=== PATIENT | male | born 1960 | race Caucasian/White ===

== ENCOUNTER 2017-03-03 08:38 | Day surgery (SDC) | payer MEDICAID, OTHER ==
[2017-03-03] MEDS ORDERED: FAMOTIDINE 20 MG TAB PO ONE (08:41)
[2017-03-03] MEDS ORDERED: DIAZEPAM 5 MG TAB PO ONE (08:41)
[2017-03-03] MEDS ORDERED: ASPIRIN EC 325 MG TAB PO ONE ×2 (08:41→08:58)
[2017-03-03] MEDS ORDERED: diphenhydrAMINE 25 MG CAP PO ONE ×2 (08:41→08:58)
[2017-03-03] MEDS ORDERED: NS 1,000 ML IV ONE (08:41)
[2017-03-03] MEDS ORDERED: FAMOTIDINE 20 MG TAB ONE (08:58)
[2017-03-03] MEDS ORDERED: DIAZEPAM 5 MG TAB ONE (08:59)
--- NOTE | 2017-03-03 09:00 | CPEKG ---
Heart Rate: 82 RR Interval: 732 P-R Interval: 152 QRSD Interval: 94 QT Interval: 404 QTC Interval: 472 P [place]: 47 QRS [place]: 26 T Wave [place]: 57 EKG Severity - NORMAL ECG - EKG Impression: SINUS RHYTHM Electronically Signed By: Josefina Laws 03-Mar-2017 18:18:53
[2017-03-03 09:14] LABS: PLATELET COUNT 162 10^3/uL (150-400)
[2017-03-03] MEDS ORDERED: fentaNYL 100 MCG/2 ML INJ ONE ×2 (09:35→11:44)
[2017-03-03] MEDS ORDERED: LIDOCAINE 1% 300 MG/30 ML SDV ONE (09:35)
[2017-03-03] MEDS ORDERED: MIDAZOLAM 2 MG/2 ML VIAL ONE ×2 (09:35→11:44)
[2017-03-03] MEDS ORDERED: HEPARIN 10,000 UNIT/10 ML MDV (1,000 UNIT/ML) ONE (09:36)
[2017-03-03] MEDS ORDERED: IOPAMIDOL (ISOVUE-370) 150 ML BTL IV ONE (09:36)
[2017-03-03] MEDS ORDERED: VERAPAMIL 5 MG/2 ML VIAL ONE (09:36)
--- NOTE | 2017-03-03 09:36 | PDHPUP ---
History & Physical Update H&P update statement: This history and physical update is based on an assessment of the patient which was completed after admission or registration (within 24 hours), but prior to the surgery/procedure. H&P update: H&P reviewed & patient examined, no change in patient's condition since H&P completed
--- NOTE | 2017-03-03 09:37 | PDPROPOC ---
Sedation Plan of Care Sedation Plan of Care: vital signs stable, mental status noted, patient educated of risks, benefits, alternatives, patient can tolerate sedation ASA Classification: ASA 2 Planned drugs: fentanyl, midazolam Mallampati Score: Class 3 Mallampati Reference Image: Patient passed 3-3-2 rule?: Yes
[2017-03-03 09:42] LABS: INR 0.95 (0.83-1.16); PROTIME(PATIENT) 12.9 SEC (12.0-15.0)
[2017-03-03] MEDS ORDERED: NICOTINE 14 MG/24 HR PATCH TD SCH (10:00)
[2017-03-03] MEDS ORDERED: ATROPINE SULFATE 1 MG/10 ML SYR IVP PRN (12:38)
[2017-03-03] MEDS ORDERED: ONDANSETRON 4 MG/2 ML VIAL IVP PRN (12:38)
[2017-03-03] MEDS ORDERED: HYDROCODONE/APAP 5/325 TAB PO PRN (12:38)
[2017-03-03] MEDS ORDERED: NITROGLYCERIN 0.4 MG BTL SL PRN (12:38)
--- NOTE | 2017-03-03 12:46 | PDDXCAT ---
Diagnostic Cath Note - . 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 LAD: Proximal 50-60%; mid-LAD 80-90% involving origin of 2nd diagonal. LCX: Ectasia of the mid-circumflex without flow-limiting stenosis. RCA: Mid-RCA 100% with [id number] collaterals. LVEF: 60% Wall motion: Normal. Complications: None Estimated blood loss: <50ml Closure method: TR Band Assessment: 1) Normal LV systolic function. 2) Multi-vessel CAD as described above. Plan: Will refer to CT surgery for CABG.
--- NOTE | 2017-03-03 17:23 | GCON ---
[f rep st] CONSULTATION DATE OF CONSULTATION: 03/03/2017 PREOPERATIVE DIAGNOSES: 1. Class 3 angina pectoris with severe 2-vessel disease. 2. Morbid obesity. 3. Alcoholism. 4. Chronic obstructive pulmonary disease with chronic ongoing cigarette abuse. 5. obstructive sleep apnea. 6. Type 2 diabetes. 7. Hypertension. 8. Mild aortic stenosis with bicuspid aortic valve disease. RECOMMENDATIONS: This patient represents a complicated PCI and surgery was recommended, given his total occlusion of the right with collaterals from the left, and a large LAD with multiple sequential lesions compromising a diagonal branch. I advised him the options include medical therapy versus surgical therapy; that his best long-term outcomes are with surgery, but his early risk is higher with surgery versus PCI. He is amenable to surgical intervention. He agrees to discontinue alcohol consumption now, in anticipation of surgery in 6 or 7 days. He was advised that if he had recurrence of angina at rest or with less exertion, then he should come directly to the ER and we would intervene sooner. He also agrees to try to taper cigarette abuse. He does not wear oxygen, and has no history of COPD. CHIEF COMPLAINT: Exertional angina. HISTORY OF CHIEF COMPLAINT: This patient has noted worsening left arm and chest discomfort with exertion, and abnormal noninvasive testing and subsequent cath revealed lesions as stated. He has had no previous cardiac intervention or history. MEDICATIONS ON ADMISSION: Advair, Ambien, Aspir 81, citalopram, glyburide, ibuprofen, lisinopril, hydrochlorothiazide, lovastatin, metformin, metoprolol, and Pro HFA 90 mcg inhaler. SOCIAL HISTORY: He admits to at least a pint of alcohol a day. He smokes at least a pack cigarettes per day. His recently within the last year, which precipitated depression and recurrence of his chronic alcoholism, from which he had abstained for from multiple for multiple years. DIAGNOSTIC STUDIES: Echo in [place] revealed trace MR, trace TR. PAs inestimable from the exam, and a bicuspid aortic valve with a mean gradient of 13 with trace AI. EF was 55%. Treadmill revealed upsloping ST-segment depression with reversible changes involving anterior septal and inferior segments of the LV. PHYSICAL EXAMINATION: GENERAL: An obese middle-aged gentleman, sitting upright in bed, eating lunch, alert, cooperative, no apparent distress, accompanied by a good friend and involved libertarian. NECK: Without bruits. HEART : Rate is regular with a soft systolic murmur across precordium. ABDOMEN: Protuberant, unable to palpate organs. Bowel sounds are active. RECTAL AND GENITAL: Deferred. NEUROLOGIC: He is grossly intact. EXTREMITIES: He has no pedal edema. 2+ pedal pulses. We will check LFTs to rule out underlying cirrhosis, although I see no peripheral stigmata. /[id number]/MODL MTDD
[2017-03-04] MEDS ORDERED: ATORVASTATIN CALCIUM 40 MG TAB PO SCH (09:00)
== END 2017-03-03 15:47 | disposition home or self-care (01) ==
LOC: FCATH 08:38
PROVIDERS: ATTEND Internal Medicine Interventional Cardiology
PROC: 4A023N7 Measurement of Cardiac Sampling and Pressure, Left Heart, Percutaneous Approach (ICD-10-PCS; principal; 2017-03-03)
PROC: B2151ZZ Fluoroscopy of Left Heart using Low Osmolar Contrast (ICD-10-PCS; principal; 2017-03-03)
PROC: B2111ZZ Fluoroscopy of Multiple Coronary Arteries using Low Osmolar Contrast (ICD-10-PCS; principal; 2017-03-03)
DX: I25.119 Atherosclerotic heart disease of native coronary artery with unspecified angina pectoris (principal); I25.82 Chronic total occlusion of coronary artery; R94.39 Abnormal result of other cardiovascular function study; I35.0 Nonrheumatic aortic (valve) stenosis; I36.1 Nonrheumatic tricuspid (valve) insufficiency; F17.210 Nicotine dependence, cigarettes, uncomplicated; E11.9 Type 2 diabetes mellitus without complications; J44.9 Chronic obstructive pulmonary disease, unspecified; I10 Essential (primary) hypertension; E78.00 Pure hypercholesterolemia, unspecified; G47.33 Obstructive sleep apnea (adult) (pediatric); E66.01 Morbid (severe) obesity due to excess calories; Z68.34 Body mass index [BMI] 34.0-34.9, adult; F10.20 Alcohol dependence, uncomplicated; Z79.82 Long term (current) use of aspirin
CPT/HCPCS: 71045; 93005; 93458; 93880; C1769; J1644; J2250; J3010; Q9967

== ENCOUNTER 2017-03-09 08:08 | Inpatient (IN) | payer MEDICAID ==
[~2017-03-09 08:08] MED LIST: ADENOSINE 6 MG/2 ML VIAL ONE; ALBUMIN 5% 250 ML BOTTLE IV ONE; AMIODARONE HCL 150 MG/3 ML VIAL ONE; CALCIUM CHLORIDE 1 GM/10 ML INJ ONE; CITRATE DEXTROSE SOLN 500 ML BAG MISC ONE; CITRATE DEXTROSE SOLN 500 ML BAG ONE; DOPamine 400 MG in D5W 250 ML IV ONE; HEPARIN 10,000 UNIT/10 ML MDV (1,000 UNIT/ML) ONE; INSULIN REGULAR HUMAN 100 UNIT in NS 100 ML IV ONE; LIDOCAINE 2% 100 MG/5 ML SYR ONE; MAGNESIUM SULFATE 1 GM/2 ML VIAL ONE; MANNITOL 25% 12.5 GM/50 ML VIAL IVP ONE; MILRINONE/DEXTROSE/100 ML BAG IV ONE; MUPIROCIN 2% 22 GM OINT NS ONE; NA BICARBONATE 50 MEQ/50 ML VIAL ONE; NOREPINEPHRINE BITARTRATE 16 MG in NS 250 ML IV ONE; PHENYLEPHRINE HCL 50 MG in NS 250 ML IV ONE; PROTAMINE SULFATE 50 MG/5 ML VIAL IVP ONE; SODIUM BICARBONATE 20 MEQ, LIDOCAINE 1% 10 ML in NORMOSOL-R 1,000 ML MISC ONE; TRANEXAMIC ACID 1,000 MG in NS 100 ML IV ONE; VERAPAMIL 5 MG, NITROGLYCERIN 2.5 MG, HEPARIN 500 UNIT, SODIUM BICARBONATE 0.2 MEQ in L... MISC ONE; ceFAZolin 1 GM VIAL ONE; ceFAZolin 2 GM/SWFI 2 GM/20 ML SYR IVP ONE; methylPREDNISolone SOD SUCC 1 GM/8 ML VIAL ONE; niCARdipine/NACL 200 ML IV SCH; niCARdipine/NACL/200 ML BAG IV ONE
--- NOTE | 2017-03-09 08:18 | PDHPUP ---
History & Physical Update H&P update statement: This history and physical update is based on an assessment of the patient which was completed after admission or registration (within 24 hours), but prior to the surgery/procedure.
[2017-03-09] MEDS ORDERED: ceFAZolin 2 GM/SWFI 2 GM/20 ML SYR IVP ONE (09:15)
[2017-03-09] MEDS ORDERED: MUPIROCIN 2% 22 GM OINT NS ONE (09:15)
[2017-03-09] MEDS ORDERED: PAPAVERINE HCL 60 MG/2 ML SDV ONE (09:19)
[2017-03-09] MEDS ORDERED: VERAPAMIL 5 MG/2 ML VIAL ONE (09:20)
[2017-03-09] MEDS ORDERED: LR 1,000 ML IV ONE (09:22)
[2017-03-09] MEDS ORDERED: LIDOCAINE 1% 2 ML INJ ID PRN (09:22)
[2017-03-09] MEDS ORDERED: MIDAZOLAM 2 MG/2 ML VIAL ONE ×3 (09:47→10:05)
[2017-03-09] MEDS ORDERED: MIDAZOLAM 2 MG/2 ML VIAL IVP ONE (09:50)
--- NOTE | 2017-03-09 09:52 | PDANEPAE ---
ANE History of Present Illness cad s/f cabg ANE Past Medical History - Cardiovascular History Hx Hypertension: Yes Hx Arrhythmias: No Hx Chest Pain: Yes Hx Coronary Artery / Peripheral Vascular Disease: Yes Hx CHF / Valvular Disease: No Hx Palpitations: No Cardiovascular History Comment: heart murmur - Pulmonary History Hx COPD: Yes Hx Asthma/Reactive Airway Disease: Yes Hx Recent Upper Respiratory Infection: No Hx Oxygen in Use at Home: No Hx Sleep Apnea: Yes Sleep Apnea Screening Result - Last Documented: Positive Pulmonary History Comment: smoking since 4 yrs old, currently smokes 1,1/2 packs a day - Neurologic History Hx Cerebrovascular Accident: No Hx Seizures: No Hx Dementia: No - Endocrine History Hx Diabetes: Yes Endocrine History Comment: type 2 - Renal History Hx Renal Disorders: No - Liver History Hx Hepatic Disorders: No - Neurological & Psychiatric Hx Hx Neurological and Psychiatric Disorders: Yes Neurological / Psychiatric History Comment: anxiety and deppression. hx of suicidal ideation with attempt. 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 - Cancer History Hx Cancer: No - Congenital Disorder History Hx Congenital Disorders: No - GI History Hx Gastrointestinal Disorders: No - Other Health History Other Health History: two ruptured disc's in lower back - Chronic Pain History Chronic Pain: No - Surgical History Prior Surgeries: none ANE Review of Systems Review of Systems: - Exercise capacity METS (RN): 3 METS ANE Patient History - Allergies Allergies/Adverse Reactions: oxycodone [From Percodan] Allergy (Severe, Verified 03/06/17 14:07) Other-Enter Comments - Home Medications Home medications: home medication list seen and reviewed Home Medications: Albuterol [Proventil Inhaler HFA (*)] 2 puffs IH Q6HRS PRN 03/03/17 [Last Taken 03/08/17] Aspirin [Aspirin 81mg (*)] 81 mg PO DAILY 03/03/17 [Last Taken 03/08/17] Citalopram [CeleXA 20 MG] 20 mg PO DAILY 03/03/17 [Last Taken 03/08/17] Fluticasone/Salmeter 250/50Mcg [Advair 250/50 (*)] 1 puffs IH BID 03/03/17 [ Last Taken 03/08/17] Ibuprofen [Motrin (*)] 600 mg PO TID PRN 03/03/17 [Last Taken 03/07/17] Lisinopril/Hctz 20/12.5MG [Zestoretic/Prinzide 20/12.5MG (*)] 1 ea PO DAILY [Last Taken 03/08/17] Metoprolol Succinate Xr [Toprol Xl 100 mg (*)] 200 mg PO DAILY 03/03/17 [Last Taken 03/08/17] Zolpidem Tartrate [Ambien 5MG (*)] 5 mg PO HS PRN 03/03/17 [Last Taken 03/08/17] glyBURIDE [Glyburide] 5 mg PO BIDMEAL 03/03/17 [Last Taken 03/08/17] metFORMIN HCL [Glucophage 1000 mg] 1,000 mg PO BIDMEAL 03/03/17 [Last Taken ] - NPO status NPO Since - Liquids (Date): 03/08/17 NPO Since - Liquids (Time): 23:00 NPO Since - Solids (Date): 03/08/17 NPO Since - Solids (Time): 22:00 - Smoking Hx Smoking Status: Heavy smoker - Family Anes Hx Family Hx Anesthesia Complications: none ANE Labs/Vital Signs - Labs - CBC WBC: reviewed and ok - Vital Signs Heart Rate: 69 Respiratory Rate: 14 O2 Sat (%): 92 Height: 180.34 cm Weight: 111.13 kg ANE Physical Exam - Airway Neck exam: FROM Mallampati Score: Class 2 Mouth exam: michelle - Pulmonary Pulmonary: expiratory wheeze - Cardiovascular Cardiovascular: regular rate and rhythym - ASA Status ASA Status: III ANE Anesthesia Plan Anesthesia Plan: general endotracheal anesthesia Lines/Monitors: arterial line (by CTS), central line (QL CVP)
[2017-03-09] MEDS ORDERED: PROPOFOL/EMULSION 500 MG/50 ML BOTTLE IV ONE ×2 (10:06→13:12)
[2017-03-09] MEDS ORDERED: fentaNYL 250 MCG/5 ML INJ ONE (10:06)
[2017-03-09] MEDS ORDERED: REMIFENTANIL HCL 1 MG VIAL ONE (10:06)
[2017-03-09] MEDS ORDERED: PHENYLEPHRINE HCL 100 MCG/ML SYR ONE (10:10)
[2017-03-09] MEDS ORDERED: DEXAMETHASONE 4 MG/ML VIAL ONE ×2 (10:10)
[2017-03-09] MEDS ORDERED: LIDOCAINE 2% 100 MG/5 ML SYR ONE (10:10)
[2017-03-09] MEDS ORDERED: LIDOCAINE HCL 160 MG/4 ML LTA KIT TP ONE (10:10)
[2017-03-09] MEDS ORDERED: ROCURONIUM 100 MG/10 ML VIAL ONE (10:10)
[2017-03-09] MEDS ORDERED: ONDANSETRON 4 MG/2 ML VIAL ONE (10:10)
[2017-03-09] MEDS ORDERED: MINERAL OIL 10 ML VIAL ONE (13:08)
[2017-03-09] MEDS ORDERED: ceFAZolin 1 GM VIAL ONE ×2 (13:12)
[2017-03-09] MEDS ORDERED: PROTAMINE SULFATE 50 MG/5 ML VIAL IVP ONE ×2 (13:20→13:39)
[2017-03-09] MEDS ORDERED: DEXMEDETOMIDINE HCL 400 MCG in NS 100 ML IV SCH (13:30)
[2017-03-09] MEDS ORDERED: ALBUMIN 5% 250 ML BOTTLE IV ONE (13:30)
[2017-03-09] MEDS ORDERED: MAGNESIUM SULF 2 GM/WATER 50 ML BAG IV ONE (13:31)
[2017-03-09] MEDS ORDERED: ROCURONIUM 50 MG/5 ML VIAL ONE (13:36)
[2017-03-09] MEDS ORDERED: CALCIUM CHLORIDE 1 GM/10 ML INJ ONE ×2 (13:37→13:58)
[2017-03-09] MEDS ORDERED: DEXMEDETOMIDINE/NS 4MCG/ML 50 ML BTL IV ONE (14:19)
[2017-03-09] MEDS ORDERED: BISACODYL 10 MG SUPP PR PRN (14:29)
[2017-03-09] MEDS ORDERED: ACETAMINOPHEN 325 MG TAB PO PRN (14:29)
[2017-03-09] MEDS ORDERED: MAGNESIUM SULF 2 GM/WATER 50 ML IV ONE (14:29)
[2017-03-09] MEDS ORDERED: POTASSIUM Cl (KCl) 50 ML IV PRN (14:29)
[2017-03-09] MEDS ORDERED: CEPACOL LOZENGE PO PRN (14:29)
[2017-03-09] MEDS ORDERED: SODIUM CL NASAL 45 ML BTL EACHNARE PRN (14:29)
[2017-03-09] MEDS ORDERED: POLYETHYLENE GLYCOL 3350 17 GM PKT PO PRN (14:29)
[2017-03-09] MEDS ORDERED: ONDANSETRON 4 MG/2 ML VIAL IVP PRN (14:29)
[2017-03-09] MEDS ORDERED: LACTULOSE 20 GM/30 ML UDCUP PO PRN (14:29)
[2017-03-09] MEDS ORDERED: ACETAMINOPHEN 650 MG SUPP PR PRN (14:29)
[2017-03-09] MEDS ORDERED: METOCLOPRAMIDE 10 MG/2 ML VIAL IVP PRN (14:29)
[2017-03-09] MEDS ORDERED: ONDANSETRON DISINTEGRATING 4 MG TAB PO PRN (14:29)
[2017-03-09] MEDS ORDERED: PANTOPRAZOLE SODIUM 40 MG VIAL IVP ONE (14:29)
[2017-03-09] MEDS ORDERED: MAGNESIUM HYDROXIDE 30 ML UDCUP PO PRN (14:29)
[2017-03-09] MEDS ORDERED: D50W 25 GM/50 ML SYR IVP PRN (14:29)
[2017-03-09] MEDS ORDERED: MEPERIDINE 25 MG/ML SYR IVP PRN (14:29)
[2017-03-09] MEDS ORDERED: DEXMEDETOMIDINE IN 0.9 % NACL 100 ML IV SCH (14:30)
[2017-03-09] MEDS ORDERED: INSULIN REGULAR HUMAN 100 UNIT in NS 100 ML IV SCH (14:30)
[2017-03-09] MEDS ORDERED: IPRATROPIUM/ALBUTEROL 3 ML DEYVIAL IH PRN (14:36)
[2017-03-09] MEDS ORDERED: HYDROmorphONE/DILAUDID 1 MG/ML INJ IVP PRN (14:36)
[2017-03-09] MEDS ORDERED: VODKA 50 ML BOTTLE PO PRN (14:39)
[2017-03-09] MEDS ORDERED: PROMETHAZINE HCL 25 MG SUPPR PR PRN (14:47)
[2017-03-09] MEDS: IPRATROPIUM/ALBUTEROL 4GM MDI IH SCH ×2 (15:27→20:31)
--- NOTE | 2017-03-09 15:36 | ASMTCMCOM ---
CM Note CM Note Notes: 03/09/2017 Case Management Note Reviewed chart. Pt admitted for CABG. Case Management d/c needs are unclear at this time, awaiting PT and OT evals. Case Management d/c poc: TBD Case Management will follow. Date Signed: 03/09/2017 03:35 PM Electronically Signed By:Donna Brown RN
--- NOTE | 2017-03-09 15:54 | CPEKG ---
Heart Rate: 77 RR Interval: 779 P-R Interval: 160 QRSD Interval: 96 QT Interval: 424 QTC Interval: 480 P [place]: 53 QRS [place]: 54 T Wave [place]: 51 EKG Severity - BORDERLINE ECG - EKG Impression: SINUS RHYTHM EKG Impression: BORDERLINE PROLONGED QT INTERVAL Electronically Signed By: Howard Kwan 11-Mar-2017 08:01:16
[2017-03-09] MEDS ORDERED: NICARDIPINE IV SCH (16:00)
[2017-03-09] MEDS ORDERED: DILTIAZEM 125 MG in D5W 125 ML IV SCH (16:00)
[2017-03-09] MEDS ORDERED: NS 1,000 ML IV SCH (16:00)
[2017-03-09] MEDS ORDERED: D5W IV SCH (16:00)
[2017-03-09] MEDS: DEXMEDETOMIDINE IN 0.9 % NACL 50 ML IV SCH ×3 (17:15→22:10)
[2017-03-09] MEDS: ceFAZolin 2 GM/DEXTROSE 100 ML IV SCH (17:15)
[2017-03-09] MEDS ORDERED: LORazepam 1 MG TAB PO PRN (18:00)
--- NOTE | 2017-03-09 19:35 | GOP ---
[f rep st] OPERATIVE REPORT DATE OF OPERATION: 03/09/2017 SURGEON: Jose Kovacs DO SHOCK ABSORBER INSTALLER: Jessie Basurto, PAC. ANESTHESIOLOGIST: Rolly Dang MD. PREOPERATIVE DIAGNOSIS: 1. Unstable angina pectoris. 2. Severe chronic obstructive pulmonary disease. 3. Morbid obesity. POSTOPERATIVE DIAGNOSIS: 1. Unstable angina pectoris. 2. Severe chronic obstructive pulmonary disease. 3. Morbid obesity. PROCEDURE PERFORMED: 1. Coronary artery bypass grafting x3 with left internal mammary artery to the distal left anterior descending, saphenous vein graft to the 2nd diagonal, and saphenous vein graft to the right coronary artery. 2. Endoscopic vein harvest by JERSON Clifford. 3. AtriClip to the left atrial appendage. FINDINGS: Patient was noted to have crescendo angina with angina at rest, underwent diagnostic left heart catheterization which showed severe 2-vessel disease with extremely tight proximal LAD ostial d isease as well as an occluded right coronary artery and high-grade diagonal lesion. He is known to h ave ongoing cigarette abuse with an 80-100 pack-year history of cigarette abuse and underlying alcoho lism. He was consented for surgery. Risks were reviewed. DESCRIPTION OF PROCEDURE: He was brought to the operating room intubated. Monitoring lines were annalisa vishnu. He was prepped and draped in sterile classical manner. Sternotomy was performed. Vein was marylou vested endoscopically by Jessie Basurto, who first assisted throughout the procedure. Mammary was harveste d. It was a 2.5 mm vessel with excellent flow. Pericardium was opened. He was cannulated. The aor ta was without thickening or calcification. Biventricular function appeared to be well preserved. C ardiopulmonary bypass was begun. A cardioplegic arrest was obtained with antegrade cardioplegia, top ical hypothermia, and systemic cooling. All distals and proximals were performed with the cross-clam p on. The right coronary artery was a 1.8 mm vessel with good flow with injection, and was totally o ccluded prior to the bifurcation. Diagonal was a 1.5 mm to 1.8 mm vessel, diffusely diseased. LAD w as a diffusely diseased large vessel. An AtriClip was placed across the base of the left atrial appe ndage, 35 mm, which completely occluded it flush with the left atrium. Cross-clamp was then removed with suction on the ascending aortic vent. Spontaneous cardiac activity was noted to resume. Blair t was easily weaned from bypass. Heparin was reversed with protamine. The cannula was removed and o versewn. One pleural and 1 mediastinal drain were placed. Two ventricular pacing wires were placed. The thymic fat and pericardium were closed. Chest was closed with a Robicsek weave because of his obesity, alcoholism, and heavy smoking history. Patient was returned to ICU in stable condition. /[id number]/MODL
[2017-03-09] MEDS: ALBUMIN 5% 250 ML IV PRN (20:00)
[2017-03-09] MEDS: FAMOTIDINE 20 MG/NACL 50 ML IV SCH (20:52)
[2017-03-09] MEDS: CHLORHEXIDINE GLUCONATE 15 ML UDL PO SCH (20:52)
[2017-03-09] MEDS: MUPIROCIN 2% 22 GM OINT NS SCH (21:12)
[2017-03-10] MEDS: DEXMEDETOMIDINE IN 0.9 % NACL 50 ML IV SCH ×3 (01:17→06:29)
[2017-03-10] MEDS: ALBUMIN 5% 250 ML IV PRN ×2 (01:44→10:40)
[2017-03-10] MEDS: ceFAZolin 2 GM/DEXTROSE 100 ML IV SCH ×3 (02:40→18:02)
[2017-03-10] MEDS: IPRATROPIUM/ALBUTEROL 4GM MDI IH SCH ×4 (03:49→20:26)
[2017-03-10 05:54] LABS: PLATELET COUNT 94 10^3/uL (150-400)
[2017-03-10] MEDS: HEPARIN 5,000 UNIT/0.5 ML SYR SC SCH ×3 (06:22→21:34)
--- NOTE | 2017-03-10 07:44 | SOAPPROG ---
SOAP Progress Note Assessment/Plan: POD #1: CABGx3 (FINN-LAD, SVG-D2, SVG-RCA), AtriClip WERNER, EVH LLE Unstable angina/severe CAD with normal LV function s/p CABGx3 - BB/ASA/statin when appropriate - AL/FC to be removed, CTs to suction d/t air leak - SCDs/heparin SQ for DVT prophylaxis - PT/OT - Possible transfer to PCU later today if respiratory status stable Acute blood loss anemia - Stable without the need for transfusions COPD secondary to tobacco abuse, SELENE - Inhalers restarted - Nicotine patch to be placed on pt this AM - CPAP as needed ordered DM type II (A1c 7.5) - Will transition insulin gtt to ISS as per ICU protocol and re-introduce oral antihyperglycemics once eating ETOH abuse - Will watch for withdrawal signs Subjective: Pt has incisional pain. Discussed with him need to protect sternum when coughing. Objective: Vital Signs Temp Pulse Resp BP Pulse Ox 37.1 C 70 17 104/53 L 92 03/10/17 07:00 03/10/17 07:00 03/10/17 07:00 03/10/17 07:00 03/10/17 07:00 Laboratory Results 03/10/17 05:40 03/10/17 05:40 03/09/17 03/10/17 03/11/17 05:59 05:59 05:59 Intake Total 1092.0 Output Total 2577 Balance -1485.0 Physical Exam - Physical Exam General Appearance: WD/WN, alert, no apparent distress EENT: No scleral icterus (R), No scleral icterus (L) Neck: normal inspection Respiratory: lungs clear, normal breath sounds, No respiratory distress Cardiac/Chest: regular rate, rhythm, No systolic murmur Abdomen: non-tender, soft Skin: normal color, warm/dry Extremities: No pedal edema Neuro/Psych: no motor/sensory deficits, alert, normal mood/affect, oriented x 3 ICD10 Worksheet Patient Problems: Problems Problem Status Onset Acute blood loss anemia Acute CAD, multiple vessel Acute S/P CABG x 3 Acute ~03/09/17 Alcohol abuse Chronic Aortic stenosis with bicuspid valve Chronic Current every day smoker Chronic SELENE on CPAP Chronic Type 2 diabetes mellitus Chronic
[2017-03-10] MEDS ORDERED: ASPIRIN 81 MG CHEWABLE TAB TUBE PRN (09:00)
[2017-03-10] MEDS ORDERED: FLUTICASONE/SALMETER 250/50MCG DISKUS IH SCH (09:00)
[2017-03-10] MEDS: CITALOPRAM 20 MG TAB PO SCH (09:06)
[2017-03-10] MEDS: ASPIRIN 81 MG CHEWABLE TAB PO SCH (09:06)
[2017-03-10] MEDS: PANTOPRAZOLE SODIUM 40 MG TAB PO SCH (09:06)
[2017-03-10] MEDS: NICOTINE 21 MG/24 HR PATCH TD SCH (09:06)
[2017-03-10] MEDS: HYDROCODONE/APAP 5/325 TAB PO PRN ×4 (09:09→21:44)
[2017-03-10] MEDS: FAMOTIDINE 20 MG/NACL 50 ML IV SCH (09:09)
[2017-03-10] MEDS: MUPIROCIN 2% 22 GM OINT NS SCH ×2 (09:12→20:24)
--- NOTE | 2017-03-10 09:12 | POSTANESTH ---
Post Anesthetic Evaluation Cardiovascular Status: Normal, Stable Respiratory Status: Normal, Stable, Tx Decrease in SpO2 (recently extubated) Level of Consciousness/Mental Status: Can Participate in Eval Pain Control: Adequate, Prn Tx Ordered Nausea/Vomiting Control: Adequate, Prn Tx Ordered Complications Possibly Related to Anesthesia: None Noted
[2017-03-10] MEDS: CHLORHEXIDINE GLUCONATE 15 ML UDL PO SCH (10:20)
[2017-03-10] MEDS: FLUTICASONE/SALMETER 250/50MCG DISKUS IH SCH ×2 (10:51→20:24)
[2017-03-10] MEDS ORDERED: ALBUMIN 5% 500 ML BOTTLE IV ONE (11:33)
[2017-03-10] MEDS ORDERED: ALBUMIN 5% 500 ML IV ONE (12:00)
[2017-03-10] MEDS: VODKA 50 ML BOTTLE PO SCH ×3 (12:18→20:24)
[2017-03-10] MEDS ORDERED: D50W 25 GM/50 ML SYR IVP PRN (15:22)
--- NOTE | 2017-03-10 15:31 | PDINTPN ---
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 Oxygenation good on CPAP/oxygen, hypoxemic or RA SELENE: Using CPAP with sleep. DM: BSs OK on insulin gtt, now being D/C'd EtOH abuse: On Vodka. Anemia: Mild, due to expected mary-op blood loss. Plan: Start SSI. Continue Vodka, CPAP, DuoNebs. 03/10/17 15:32 Subjective: C/O sternal pain. Denies dyspnea. Using CPAP. Objective: Vital Signs Temp Pulse Resp BP Pulse Ox 37.0 C 87 15 114/59 L 93 03/10/17 08:00 03/10/17 15:00 03/10/17 15:00 03/10/17 15:00 03/10/17 15:00 Laboratory Results 03/10/17 05:40 03/10/17 14:10 03/09/17 03/10/17 03/11/17 05:59 05:59 05:59 Intake Total 1092.0 500 Output Total 2577 415 Balance -1485.0 85 CXR: Improved basilar infiltrates. Images reviewed by me. Physical Exam - Physical Exam General Appearance: alert, mild distress EENT: normal ENT inspection Neck: normal inspection Respiratory: lungs clear, normal breath sounds Cardiac/Chest: regular rate, rhythm, No edema Abdomen: normal bowel sounds, non-tender Skin: normal color, warm/dry Extremities: normal inspection Neuro/Psych: alert, oriented x 3, No normal mood/affect (mild distress due to pain.), No motor weakness ICD10 Worksheet Patient Problems: Problems Problem Status Onset Acute blood loss anemia Acute CAD, multiple vessel Acute S/P CABG x 3 Acute ~03/09/17 Alcohol abuse Chronic Aortic stenosis with bicuspid valve Chronic Current every day smoker Chronic SELENE on CPAP Chronic Type 2 diabetes mellitus Chronic
[2017-03-10] MEDS: LORazepam 2 MG/ML INJ IVP PRN ×3 (16:20→23:06)
[2017-03-10] MEDS: INSULIN LISPRO 100 UNIT/ML SC SCH (18:09)
[2017-03-10] MEDS ORDERED: HYDROmorphONE/DILAUDID 2 MG/ML INJ IVP PRN (18:30)
[2017-03-10] MEDS ORDERED: VODKA 50 ML BOTTLE PO ONE ×2 (21:30→23:15)
[2017-03-11] MEDS: ceFAZolin 2 GM/DEXTROSE 100 ML IV SCH (01:38)
[2017-03-11 04:25] LABS: PLATELET COUNT 106 10^3/uL (150-400)
[2017-03-11] MEDS: VODKA 50 ML BOTTLE PO SCH ×4 (04:56→20:05)
[2017-03-11] MEDS: HYDROCODONE/APAP 5/325 TAB PO PRN ×3 (04:56→20:05)
[2017-03-11] MEDS: LORazepam 2 MG/ML INJ IVP PRN ×2 (04:56→23:19)
[2017-03-11] MEDS ORDERED: AMIODARONE A.FIB-18HR INFSN (ORDER 3/3) IV ONE ×2 (06:00→12:00)
[2017-03-11] MEDS ORDERED: AMIODARONE A.FIB-LOAD DOSE(ORDER 1/3) PREMIX IV ONE (06:00)
[2017-03-11] MEDS ORDERED: AMIODARONE A.FIB-6HR INFSN (ORDER 2/3) PREMIX IV ONE (06:00)
[2017-03-11] MEDS: HEPARIN 5,000 UNIT/0.5 ML SYR SC SCH ×3 (06:06→21:24)
[2017-03-11] MEDS: IPRATROPIUM/ALBUTEROL 4GM MDI IH SCH ×4 (06:19→20:54)
[2017-03-11] MEDS: FLUTICASONE/SALMETER 250/50MCG DISKUS IH SCH ×2 (06:19→20:58)
--- NOTE | 2017-03-11 06:51 | SOAPPROG ---
SOAP Progress Note Assessment/Plan: Assessment: POD#2 CABGx3 (FINN-LAD, SVG-D2, SVG-RCA), EVH LLE, prophylactic AtriClip ligation WERNER, prophylactic Robicsek weave sternum Sx severe CAD with preserved LV systolic fx - s/p CABGx3. Stable early postop course. No vasoactive support or bradyarrhythmias. Secondary prevention with baby ASA, BB and statin when appropriate. Postoperative atrial fibrillation - with RVR and relative hypotension this am. Started on Amio with improved rate control and BP recovery. Plan adjunctive BB when allowed by BP. Acute expected blood loss anemia - Stable without the need for transfusions. COPD - suspected, secondary to longstanding tobacco abuse (70 pk yr hx). Extubated POD#1 without incident. Started on duonebs. Willing to try to quit smoking or at least cut back w aid of nicotine patch. Adjunctive aids as per hospitalist. SELENE on CPAP - Stable. Home device to be made available. DM type II - Controlled by preop A1c 7.5%. Postop hyperglycemia managed with insulin gtt. Transition to SSI and OHAs as per ICU/IM. ETOH abuse - Postop permissive intake of vodka. Modified CIWA protocol. Plan: Amio as per protocol. Colloid prn CVP < 10 or MAP < 65. Start Metoprolol if SBP consistently > 100. Wrap and cap Vwires. Keep CTs to suction at rest. Increase activity as tolerated. Monitor in ICU one more day for withdrawal sx. 03/11/17 06:41 Subjective: Doing ok. Slightly woozy when first OOB. Comfortable now. Tolerating sips/ chips. Satisfactory analgesia. Objective: Vital Signs Temp Pulse Resp BP Pulse Ox 36.8 C 130 H 26 H 93/52 L 95 03/11/17 05:00 03/11/17 06:24 03/11/17 06:24 03/11/17 06:00 03/11/17 06:00 Laboratory Results 03/11/17 04:15 03/11/17 04:15 03/10/17 03/11/17 03/12/17 05:59 05:59 05:59 Intake Total 1092.0 1970 Output Total 2577 1680 Balance -1485.0 290 Short bursts AF last noc, becoming more persistent this am. No overt hypotension. Stable 4 Lpm O2 req. CXR -> Small left apical PTX, bibasilar atelectasis, min pulm vasc congestion. I/Os balanced. +2 kg overall. Labs as expected. Physical Exam - Physical Exam General Appearance: alert, no apparent distress Respiratory: other (Coarse BS lower airways. Mild sq air/crepitus left ant chest. Blakes x 2 y-d to pleurovac, serosang drainage, no tidal, no air leak) Cardiac/Chest: tachycardia (100s), irregularly irregular, other (Sternum grossly stable. Sternotomy and LLE venotomy CDI) Abdomen: normal bowel sounds, non-tender, soft Skin: warm/dry Extremities: other (no visible leg edema) ICD10 Worksheet Patient Problems: Problems Problem Status Onset Acute blood loss anemia Acute CAD, multiple vessel Acute S/P CABG x 3 Acute ~03/09/17 Alcohol abuse Chronic Aortic stenosis with bicuspid valve Chronic Current every day smoker Chronic SELENE on CPAP Chronic Type 2 diabetes mellitus Chronic
[2017-03-11] MEDS ORDERED: ALBUMIN 5% 250 ML IV ONE (07:37)
[2017-03-11] MEDS ORDERED: AMIODARONE HCL 100 ML IV ONE ×2 (07:37→10:45)
[2017-03-11] MEDS ORDERED: ALBUMIN 5% 250 ML BOTTLE IV ONE (07:56)
[2017-03-11] MEDS: INSULIN LISPRO 100 UNIT/ML SC SCH ×3 (08:49→17:23)
[2017-03-11] MEDS: NICOTINE 21 MG/24 HR PATCH TD SCH (08:52)
[2017-03-11] MEDS: MUPIROCIN 2% 22 GM OINT NS SCH ×2 (08:59→23:21)
[2017-03-11] MEDS: CITALOPRAM 20 MG TAB PO SCH (08:59)
[2017-03-11] MEDS: PANTOPRAZOLE SODIUM 40 MG TAB PO SCH (08:59)
[2017-03-11] MEDS: FOLIC ACID 1 MG TAB PO SCH (09:00)
[2017-03-11] MEDS: THIAMINE HCL 100 MG TAB PO SCH (09:00)
[2017-03-11] MEDS: ASPIRIN 81 MG CHEWABLE TAB PO SCH (09:03)
[2017-03-11] MEDS ORDERED: METOPROLOL TARTRATE 5 MG/5 ML INJ IVP ONE (10:45)
--- NOTE | 2017-03-11 11:36 | PDINTPN ---
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 Oxygenation good on CPAP/oxygen, hypoxemic on RA SELENE: Using CPAP with sleep. DM: BSs high on SSI EtOH abuse: On Vodka. Some tremors likely due to withdrawal Anemia: Mild, due to expected mary-op blood loss. AF: Initially with RVR, now rate in 80s with amiodarone and metoprolol. Left PTX: Small. Has CT in place. Plan: Increase SSI. Continue Vodka, DuoNebs. Follow PTX with CXR, continue left CT for now. Change CPAP to home CPAP with humidifier. 03/11/17 11:40 Subjective: C/O persistent sternal pain. Productive cough. Some intermittent tremors. Slept OK with CPAP overnight, but feels the air is too dry without a humidifier. Objective: Vital Signs Temp Pulse Resp BP Pulse Ox 37.5 C 119 H 28 H 102/72 92 03/11/17 08:00 03/11/17 11:00 03/11/17 11:00 03/11/17 11:00 03/11/17 11:00 Laboratory Results 03/11/17 04:15 03/11/17 04:15 03/10/17 03/11/17 03/12/17 05:59 05:59 05:59 Intake Total 1092.0 1970 235 Output Total 2577 1680 70 Balance -1485.0 290 165 CXR: New small left apical PTX. Left Basilar CT in place. Images reviewed by me. Physical Exam - Physical Exam General Appearance: alert, no apparent distress EENT: normal ENT inspection Neck: normal inspection Respiratory: respiratory distress, crackles (bases) Cardiac/Chest: regular rate, rhythm, edema Abdomen: normal bowel sounds, non-tender Skin: normal color, warm/dry Extremities: normal inspection Neuro/Psych: alert, normal mood/affect, oriented x 3 ICD10 Worksheet Patient Problems: Problems Problem Status Onset Acute blood loss anemia Acute CAD, multiple vessel Acute Postoperative atrial fibrillation Acute S/P CABG x 3 Acute ~03/09/17 Alcohol abuse Chronic Aortic stenosis with bicuspid valve Chronic Current every day smoker Chronic SELENE on CPAP Chronic Type 2 diabetes mellitus Chronic
[2017-03-11] MEDS ORDERED: INSULIN REGULAR HUMAN 100 UNIT/ML UNIT IVP ONE (12:55)
--- NOTE | 2017-03-11 16:25 | PDHOSCONS ---
Hospitalist Consult Hospitalist Consult: Consulted service: Internal Medicine Reason for consultation: Medical Management. Requesting physician: MEGHAN - Dr. Jose Kovacs History of present illness: The patient is a 56-year-old male with history of morbid obesity, alcoholism, tobacco dependence, hypertension, diabetes mellitus type 2, hyperlipidemia, SELENE, and coronary artery disease who is admitted to the hospital in March 09 for an elective CABG. On March 03, 2017 the patient had undergone PCI which revealed multivessel disease. Internal Medicine was consulted for management of comorbid conditions and for counseling on lifestyle changes. Today the patient feels a little better as it is postoperative day 2. He continues to have chest pain from the surgery. He says he is willing to quit smoking at this time. He is not yet ready to quit drinking. He claims to have a healthy diet already. He does not exercise much. He states he is compliant with his medications and his CPAP device. See social history for further details. Past medical history: Type 2 diabetes mellitus, multi-vessel CAD, morbid obesity, hypertension, dyslipidemia, alcoholism, tobacco dependence, bicuspid aortic valve, SELENE on CPAP, depression. Past surgical history: None reported. Medications: Advair, Ambien, aspirin, citalopram, glyburide, ibuprofen, lisinopril-hydrochlorothiazide, lovastatin, metformin, metoprolol succinate, ProAir. Please see medication reconciliation form for dosages and frequencies. Allergies: NKDA Social history: Patient is a , his 1.5 years ago. Since then he has been very depressed. He started drinking heavily again. 1 pt of vodka every other day. He started smoking when he was 4 years old. He has smoked 1-1.5 packs a day since the age of 17. He lives alone with 3 small dogs. He has no local family and has a few friends in the area. Family history: Alcoholism in all 1st degree relatives- mother, father, brother. Review of systems: 10 point review of systems was conducted and is negative except per HPI Physical exam: Vitals: Reviewed. +WG about 2kg since prior to surgery. Intake and output: 2.5 L/0.6 L for net (+)1.8 L in the last 24hr period. (+) 0.3 prior day. General: The patient is a morbidly obese male who is alert and in no acute distress. HEENT: normocephalic, extraocular movements intact, conjunctivae clear, no lesions on face. Nares and oral mucosa pink and moist. Neck: trachea midline, no visible masses, no external lesions. CV: +S1/S2, RRR. No murmur. + slight friction rub. + tender chest wall. Noted SANAM drains in place with serosanguineous fluid. Noted arterial line and central venous line. Resp: unlabored, CTAB no rhonchi or wheezing. +mild bibasilar rales. Abd: soft and nondistended. Musculoskeletal: Normal muscle tone and bulk. Neuro: cranial nerves II XII grossly intact. Intact gross motor and sensory function. Psych: appropriate mood/affect. Skin: no pallor. Heme/lymph: +1 peripheral edema of bilateral lower extremities. : No Petersen. Labs: White blood cells 11.86, hemoglobin 11.9, platelets 106. Blood sugar in 200s to 300s. Other Data: Personally reviewed and interpreted. Post op EKG-NSR. nonspecific T-wave flattening in lateral leads. QTC 460. CXR - (+) mild-mod pulm edema. Telemetry review - he has had AF earlier. Impression and plan: Multi vessel CAD, status post CABG x 2, POD #2 Postop CP Postop AF - now in NSR Hypertension Dyslipidemia -ICU status. -cardiac monitoring. -amiodarone has worked for AF. -statin, ASA, BB. Consider to add ACEI soon. -Consider Cardiology consult. -prn analgesia w/ bowel regimen. Acute Resp failure, on O2 via NC L apical pneumothorax, small Obstructive sleep apnea, on CPAP Likely COPD Tobacco dependence -O2, SVNs, inhalers. Pulm/CC specialist following. -cont CPAP QHS -consider to diurese as he is more fluid positive w/ recent weight gain and some pulm edema. -counseled on smoking cessation, which he is agreeable to. -prn nicotine patch daily. -ISU to avoid atelectasis Alcoholism -getting 2 shots vodka AC. Ativan prn withdrawal Sx. -thiamine, MVN -Pt does not wish to quit during this hospitalization. -He would like to focus on smoking cessation at this time. Anemia, 2/2 ABL -probably contribues to hypoxia a little -stable, mild -monitor Morbid obesity DM Type 2, uncontrolled -Insulin -has been increased today by Pulm/CC. -counseling specialist on [facility] - pt will benefit from exercise program. -Recommend cardiac rehab. Major depressive disorder -citalopram -consider counseling as an outpt. VTE ppx - heparin. Code status - full. I have discussed the case w/ Pulm/CC Specialist. Thank you, Dr. Kovacs, for the consult. We will continue to follow the patient throughout his hospitalization.
--- NOTE | 2017-03-11 16:37 | ASMTCMCOM ---
CM Note CM Note Notes: Spoke with patient about PT recommendation for SNF rehab. Patient states he is interested and would like to go somewhere close to his home in [place]. Referrals made to [facility]. Patient is getting vodkasQID to prevent withdrawal. CM will follow. Date Signed: 03/11/2017 04:37 PM Electronically Signed By:Karol Monroy LCSW
[2017-03-11] MEDS: SENNOSIDES/DOCUSATE SODIUM TAB PO SCH (20:05)
[2017-03-11] MEDS ORDERED: METOPROLOL TARTRATE 25 MG TAB PO SCH (21:00)
[2017-03-12] MEDS: IPRATROPIUM/ALBUTEROL 4GM MDI IH SCH ×4 (05:43→21:57)
[2017-03-12] MEDS: VODKA 50 ML BOTTLE PO SCH ×4 (05:49→21:23)
[2017-03-12] MEDS: HEPARIN 5,000 UNIT/0.5 ML SYR SC SCH ×2 (05:49→13:14)
--- NOTE | 2017-03-12 07:40 | SOAPPROG ---
SOAP Progress Note Assessment/Plan: POD #3: CABGx3 (FINN-LAD, SVG-D2, SVG-RCA), AtriClip WERNER, EVH LLE Unstable angina/severe CAD with normal LV function s/p CABGx3 - BB/ASA/statin - Mediastinal CT and PW to be removed, pleural drain to remain - SCDs/heparin SQ for DVT prophylaxis - PT/OT - Transfer to PCU Acute blood loss anemia - Stable without the need for transfusions COPD secondary to tobacco abuse, SELENE - Inhalers restarted - Nicotine patch to be placed on pt this AM - CPAP as needed ordered DM type II (A1c 7.5) - Continue ISS - Oral antihyperglycemics started at half doses ETOH abuse - continue Vodka QID with Ativan prn Subjective: Has some left-sided chest pain. Denies SOB. Denies feelings of withdrawal. States he's quit drinking before and never experience shaking or tremors. Is craving cigarettes. Objective: Vital Signs Temp Pulse Resp BP Pulse Ox 36.7 C 130 H 17 130/85 H 93 03/12/17 04:00 03/12/17 06:00 03/12/17 06:00 03/12/17 06:00 03/12/17 06:00 Laboratory Results 03/12/17 05:00 03/12/17 04:58 03/11/17 03/12/17 03/13/17 05:59 05:59 05:59 Intake Total 1970 3103 Output Total 1680 1730 Balance 290 1373 Physical Exam - Physical Exam General Appearance: WD/WN, alert, no apparent distress EENT: No scleral icterus (R), No scleral icterus (L) Neck: normal inspection Respiratory: No respiratory distress Cardiac/Chest: regular rate, rhythm Abdomen: non-tender, soft Skin: normal color, warm/dry Extremities: No pedal edema Neuro/Psych: no motor/sensory deficits, alert, normal mood/affect, oriented x 3 ICD10 Worksheet Patient Problems: Problems Problem Status Onset Acute blood loss anemia Acute CAD, multiple vessel Acute Postoperative atrial fibrillation Acute S/P CABG x 3 Acute ~03/09/17 Alcohol abuse Chronic Aortic stenosis with bicuspid valve Chronic Current every day smoker Chronic SELENE on CPAP Chronic Type 2 diabetes mellitus Chronic
[2017-03-12] MEDS ORDERED: traMADol 50 MG TAB PO PRN ×2 (07:54→15:53)
[2017-03-12] MEDS ORDERED: metFORMIN HCL 500 MG TAB PO SCH (08:00)
[2017-03-12] MEDS ORDERED: METFORMIN HCL 500 MG PO SCH (08:00)
[2017-03-12] MEDS ORDERED: glyBURIDE 2.5 MG TAB PO SCH (08:00)
[2017-03-12] MEDS: FLUTICASONE/SALMETER 250/50MCG DISKUS IH SCH ×2 (08:02→21:57)
[2017-03-12] MEDS: ASPIRIN 81 MG CHEWABLE TAB PO SCH (08:10)
[2017-03-12] MEDS: FOLIC ACID 1 MG TAB PO SCH (08:10)
[2017-03-12] MEDS: AMIODARONE HCL 200 MG TAB PO SCH ×2 (08:10→21:20)
[2017-03-12] MEDS: ATORVASTATIN CALCIUM 40 MG TAB PO SCH (08:10)
[2017-03-12] MEDS: INSULIN LISPRO 100 UNIT/ML SC SCH ×3 (08:11→17:54)
[2017-03-12] MEDS: CITALOPRAM 20 MG TAB PO SCH (08:11)
[2017-03-12] MEDS: THIAMINE HCL 100 MG TAB PO SCH (08:17)
[2017-03-12] MEDS: MULTIVITAMINS 1 EACH TAB PO SCH (08:17)
[2017-03-12] MEDS: PANTOPRAZOLE SODIUM 40 MG TAB PO SCH (08:17)
[2017-03-12] MEDS: SENNOSIDES/DOCUSATE SODIUM TAB PO SCH ×2 (08:17→21:20)
[2017-03-12] MEDS: NICOTINE 21 MG/24 HR PATCH TD SCH (08:18)
[2017-03-12] MEDS ORDERED: METOPROLOL TARTRATE 25 MG TAB PO SCH (09:00)
[2017-03-12] MEDS ORDERED: METOPROLOL TARTRATE 25 MG TAB PO ONE (13:30)
[2017-03-12] MEDS: HYDROCODONE/APAP 5/325 TAB PO PRN (13:31)
--- NOTE | 2017-03-12 14:45 | HOSPPROG ---
Hospitalist Progress Note Assessment/Plan: * Multi vessel CAD, status post CABG x 2, POD #3 * type 2 diabetes * Increased metformin and glyburide to home doses * obstructive sleep apnea * hypertension * alcoholism * Getting vodka * tobacco dependence * Nicotine patch Subjective: No new complaints Objective: Vital Signs Temp Pulse Resp BP Pulse Ox 36.6 C 85 20 132/82 H 92 03/12/17 11:20 03/12/17 11:20 03/12/17 11:20 03/12/17 11:20 03/12/17 11:20 Laboratory Results 03/12/17 05:00 03/12/17 04:58 03/11/17 03/12/17 03/13/17 05:59 05:59 05:59 Intake Total 1970 3103 Output Total 1680 1730 Balance 290 1373 - Physical Exam Constitutional: no apparent distress, appears nourished, not in pain Eyes: anicteric sclera, EOMI Cardiovascular: regular rate and rhythym Respiratory: no respiratory distress Skin: warm Neurologic: AAOx3 Psychiatric: interacting appropriately, not anxious, not encephalopathic, thought process linear ICD10 Worksheet Patient Problems: Problems Problem Status Onset Acute blood loss anemia Acute CAD, multiple vessel Acute Postoperative atrial fibrillation Acute S/P CABG x 3 Acute ~03/09/17 Alcohol abuse Chronic Aortic stenosis with bicuspid valve Chronic Current every day smoker Chronic SELENE on CPAP Chronic Type 2 diabetes mellitus Chronic
--- NOTE | 2017-03-12 15:02 | ASMTCMCOM ---
CM Note CM Note Notes: CM spoke w/ Zeynep, RN regarding d/c POC. Micaela in from [facility] to assess pt. CM completed ULTC-100 and faxed it to [facility]. CM faxed attached the ULTC-100 to [employer]. CM to follow. Plan: [facility] pending approval by [facility] Date Signed: 03/12/2017 03:02 PM Electronically Signed By:MARCELO Gutierrez
[2017-03-12] MEDS ORDERED: AMIODARONE HCL 100 ML IV ONE (15:39)
[2017-03-12] MEDS ORDERED: POTASSIUM CL 20 MEQ TAB PO ONE (15:50)
[2017-03-12] MEDS ORDERED: FUROSEMIDE 40 MG/4 ML VIAL IVP ONE (15:50)
[2017-03-12] MEDS: metFORMIN HCL 500 MG TAB PO SCH (17:32)
[2017-03-12] MEDS: glyBURIDE 2.5 MG TAB PO SCH (17:32)
[2017-03-12] MEDS ORDERED: METOPROLOL TARTRATE 50 MG TAB PO SCH (21:00)
[2017-03-12] MEDS: OXYCODONE/APAP 5/325 TAB PO PRN (21:20)
[2017-03-12] MEDS: APIXABAN 5 MG TAB PO SCH (21:20)
[2017-03-12] MEDS: METOPROLOL TARTRATE 50 MG TAB PO SCH (21:21)
[2017-03-13] MEDS: OXYCODONE/APAP 5/325 TAB PO PRN ×3 (04:32→20:20)
--- NOTE | 2017-03-13 06:23 | SOAPPROG ---
SOAP Progress Note Assessment/Plan: POD #4: CABGx3 (FINN-LAD, SVG-D2, SVG-RCA), AtriClip WERNER, EVH LLE Unstable angina/severe CAD with normal LV function s/p CABGx3 - BB/ASA/statin - All tubes/wires out - SCDs/Eliquis for DVT prophylaxis - PT/OT Acute blood loss anemia - Stable without the need for transfusions Post-op Paroxysmal atrial fibrillation - Continue amiodarone, beta-grant, Eliquis COPD secondary to tobacco abuse, h/o SELENE - Inhalers restarted - Nicotine patch to be placed on pt this AM - CPAP ordered DM type II (A1c 7.5) - Continue ISS and oral antihyperglycemics - further mgmt as per hospitalist service ETOH abuse - continue Vodka QID with Ativan prn Subjective: Breathing is easier today. Walking without a problem. Objective: Vital Signs Temp Pulse Resp BP Pulse Ox 36.9 C 114 H 19 115/81 H 95 03/13/17 04:00 03/13/17 04:00 03/13/17 04:00 03/13/17 04:00 03/13/17 04:00 Laboratory Results 03/13/17 04:50 03/12/17 04:58 03/12/17 03/13/17 03/14/17 05:59 05:59 05:59 Intake Total 3103 1830 Output Total 1730 600 Balance 1373 1230 Physical Exam - Physical Exam General Appearance: WD/WN, alert, no apparent distress EENT: No scleral icterus (R), No scleral icterus (L) Neck: normal inspection Respiratory: No respiratory distress Cardiac/Chest: irregularly irregular Abdomen: non-tender, soft Skin: normal color, warm/dry Extremities: pedal edema Neuro/Psych: no motor/sensory deficits, alert, normal mood/affect, oriented x 3 ICD10 Worksheet Patient Problems: Problems Problem Status Onset Acute blood loss anemia Acute CAD, multiple vessel Acute Postoperative atrial fibrillation Acute S/P CABG x 3 Acute ~03/09/17 Alcohol abuse Chronic Aortic stenosis with bicuspid valve Chronic Current every day smoker Chronic SELENE on CPAP Chronic Type 2 diabetes mellitus Chronic
[2017-03-13] MEDS: VODKA 50 ML BOTTLE PO SCH ×4 (06:29→20:18)
[2017-03-13] MEDS: IPRATROPIUM/ALBUTEROL 4GM MDI IH SCH ×4 (06:35→21:59)
[2017-03-13] MEDS ORDERED: AMIODARONE HCL 100 ML IV ONE (07:38)
[2017-03-13] MEDS ORDERED: POTASSIUM CL 20 MEQ TAB PO ONE ×2 (07:38→17:39)
[2017-03-13] MEDS ORDERED: FUROSEMIDE 40 MG/4 ML VIAL IVP ONE ×2 (07:38→17:39)
[2017-03-13] MEDS: INSULIN LISPRO 100 UNIT/ML SC SCH ×3 (08:29→18:35)
[2017-03-13] MEDS: metFORMIN HCL 500 MG TAB PO SCH ×2 (08:39→17:37)
[2017-03-13] MEDS: glyBURIDE 2.5 MG TAB PO SCH ×2 (08:39→17:37)
[2017-03-13] MEDS: FLUTICASONE/SALMETER 250/50MCG DISKUS IH SCH ×2 (10:05→21:59)
[2017-03-13] MEDS: THIAMINE HCL 100 MG TAB PO SCH (10:08)
[2017-03-13] MEDS: SENNOSIDES/DOCUSATE SODIUM TAB PO SCH ×2 (10:08→21:22)
[2017-03-13] MEDS: APIXABAN 5 MG TAB PO SCH ×2 (10:09→20:17)
[2017-03-13] MEDS: ATORVASTATIN CALCIUM 40 MG TAB PO SCH (10:09)
[2017-03-13] MEDS: MULTIVITAMINS 1 EACH TAB PO SCH (10:09)
[2017-03-13] MEDS: AMIODARONE HCL 200 MG TAB PO SCH ×2 (10:09→20:17)
[2017-03-13] MEDS: CITALOPRAM 20 MG TAB PO SCH (10:09)
[2017-03-13] MEDS: METOPROLOL TARTRATE 50 MG TAB PO SCH ×2 (10:10→20:17)
[2017-03-13] MEDS: ASPIRIN 81 MG CHEWABLE TAB PO SCH (10:10)
[2017-03-13] MEDS: PANTOPRAZOLE SODIUM 40 MG TAB PO SCH (10:10)
[2017-03-13] MEDS: FOLIC ACID 1 MG TAB PO SCH (10:10)
[2017-03-13] MEDS: NICOTINE 21 MG/24 HR PATCH TD SCH (10:12)
--- NOTE | 2017-03-13 15:05 | ASMTCMCOM ---
CM Note CM Note Notes: CM met w/ pt for dispo planning. A member from [facility] stopped by today to meet w/ pt. Pt told [facility] that he is not interested in SNF at this time. Pt reports that he can have a friend stay w/ him. Pt reports that he will pursue outpatient rehab. Pt reports that he is not interested in HC. CM available for changes. Plan: Independent Date Signed: 03/13/2017 03:05 PM Electronically Signed By:MARCELO Gutierrez
--- NOTE | 2017-03-13 16:36 | HOSPPROG ---
Hospitalist Progress Note Assessment/Plan: New patient encounter * Multi vessel CAD, status post CABG x 2, POD #4 * Unstable Angina * ABLA, Hgb is stable, no indications for transfusion * Post op Afib, on Amio, BB, Eliquis * COPD * Pedal Edema * type 2 diabetes * Increased metformin and glyburide to home doses * obstructive sleep apnea * hypertension * alcoholism * Getting vodka * tobacco dependence * Nicotine patch * constipation Plan: -Cards following -BB/ASA/Statin/Eliquis/Amio -Lasix as needed, got a dose this morning -CPAP -Nicotine patch -ISS, home DM meds -Schedule Vodka and Ativan as needed -Stool softner and suppository as needed Subjective: c/o constipation. some leg swelling. no cp or sob Objective: Vital Signs Temp Pulse Resp BP Pulse Ox 36.8 C 78 18 122/72 H 94 03/13/17 15:30 03/13/17 16:27 03/13/17 16:27 03/13/17 15:30 03/13/17 16:27 Laboratory Results 03/13/17 04:50 03/12/17 04:58 03/12/17 03/13/17 03/14/17 05:59 05:59 05:59 Intake Total 3103 1830 1250 Output Total 1730 695 300 Balance 1373 1135 950 - Physical Exam Constitutional: no apparent distress Eyes: PERRL Ears, Nose, Mouth, Throat: moist mucous membranes Cardiovascular: regular rate and rhythym, edema (trace) Respiratory: reduced air movement Gastrointestinal: normoactive bowel sounds Skin: warm Neurologic: AAOx3 Psychiatric: interacting appropriately, not anxious, not encephalopathic, thought process linear Lymph, Heme, Immunologic: No petechiae ICD10 Worksheet Patient Problems: Problems Problem Status Onset Acute blood loss anemia Acute CAD, multiple vessel Acute Postoperative atrial fibrillation Acute S/P CABG x 3 Acute ~03/09/17 Alcohol abuse Chronic Aortic stenosis with bicuspid valve Chronic Current every day smoker Chronic SELENE on CPAP Chronic Type 2 diabetes mellitus Chronic
[2017-03-13] MEDS ORDERED: ZOLPIDEM TARTRATE 5 MG TAB PO PRN (21:00)
[2017-03-14] MEDS: OXYCODONE/APAP 5/325 TAB PO PRN (02:20)
[2017-03-14] MEDS: IPRATROPIUM/ALBUTEROL 4GM MDI IH SCH (05:52)
[2017-03-14 06:14] LABS: PLATELET COUNT 197 10^3/uL (150-400)
[2017-03-14] MEDS: VODKA 50 ML BOTTLE PO SCH ×4 (06:23→19:57)
--- NOTE | 2017-03-14 08:02 | SOAPPROG ---
SOAP Progress Note Assessment/Plan: Assessment: POD#5 CABGx3 (FINN-LAD, SVG-D2, SVG-RCA), EVH LLE, prophylactic AtriClip ligation WERNER, prophylactic Robicsek weave sternum Sx severe CAD with preserved LV systolic fx - s/p CABGx3. Stable early postop course. CTs and wires out. Secondary prevention with baby ASA, BB and statin. Postoperative paroxysmal atrial fibrillation - SR restored with Amio and escalating doses BB. Antithrombotic prophylaxis with Eliquis. Acute expected blood loss anemia - Stable without the need for transfusions. COPD - suspected, secondary to longstanding tobacco abuse (70 pk yr hx). Extubated POD#1 without incident. Transitioned from scheduled duonebs back to home MDIs. Willing to try to quit smoking or at least cut back w aid of nicotine patch. SELENE on CPAP - Stable. Home device in use. DM type II - Controlled by preop A1c 7.5%. Postop hyperglycemia managed with insulin gtt, transitioning to SSI and OHAs as per hospitalist. ETOH abuse - No withdrawal sx postop on modified CIWA protocol with permissive intake of vodka. Plan: Resume home dose metoprolol. Lasix 20 mg today. Dispo - Anticipate home tomorrow without services. 03/14/17 07:59 Subjective: Feels well. Breathing easier. Appetite normalizing. Tolerating light activity with relative ease. 4 BMs yest, and now "cleaned out". No overwhelming cig cravings. Objective: Vital Signs Temp Pulse Resp BP Pulse Ox 36.9 C 98 12 136/95 H 97 03/14/17 04:00 03/14/17 05:53 03/14/17 05:53 03/14/17 04:00 03/14/17 05:53 Laboratory Results 03/14/17 06:00 03/14/17 06:00 03/13/17 03/14/17 03/15/17 05:59 05:59 05:59 Intake Total 1830 1670 Output Total 695 1075 Balance 1135 595 Physical Exam - Physical Exam General Appearance: alert, no apparent distress Respiratory: lungs clear (grossly) Cardiac/Chest: regular rate, rhythm, other (Sternum grossly stable. Sternotomy and CT sites CDI.) Abdomen: non-tender, soft Skin: warm/dry Extremities: swelling (trace ankle edema) ICD10 Worksheet Patient Problems: Problems Problem Status Onset Acute blood loss anemia Acute CAD, multiple vessel Acute Postoperative atrial fibrillation Acute S/P CABG x 3 Acute ~03/09/17 Alcohol abuse Chronic Aortic stenosis with bicuspid valve Chronic Current every day smoker Chronic SELENE on CPAP Chronic Type 2 diabetes mellitus Chronic
[2017-03-14] MEDS ORDERED: ALBUTEROL 60 PUFFS/8 GM MDI IH PRN (08:07)
[2017-03-14] MEDS: NICOTINE 21 MG/24 HR PATCH TD SCH (08:15)
[2017-03-14] MEDS: INSULIN LISPRO 100 UNIT/ML SC SCH ×3 (08:15→17:44)
[2017-03-14] MEDS: ATORVASTATIN CALCIUM 40 MG TAB PO SCH (08:17)
[2017-03-14] MEDS: AMIODARONE HCL 200 MG TAB PO SCH ×2 (08:18→19:57)
[2017-03-14] MEDS: CITALOPRAM 20 MG TAB PO SCH (08:18)
[2017-03-14] MEDS: metFORMIN HCL 500 MG TAB PO SCH ×2 (08:18→17:44)
[2017-03-14] MEDS: ASPIRIN 81 MG CHEWABLE TAB PO SCH (08:18)
[2017-03-14] MEDS: FOLIC ACID 1 MG TAB PO SCH (08:18)
[2017-03-14] MEDS: traMADol 50 MG TAB PO PRN ×2 (08:19→16:33)
[2017-03-14] MEDS: PANTOPRAZOLE SODIUM 40 MG TAB PO SCH (08:19)
[2017-03-14] MEDS: glyBURIDE 2.5 MG TAB PO SCH ×2 (08:19→17:45)
[2017-03-14] MEDS: APIXABAN 5 MG TAB PO SCH ×2 (08:21→19:57)
[2017-03-14] MEDS: MULTIVITAMINS 1 EACH TAB PO SCH (08:21)
[2017-03-14] MEDS: SENNOSIDES/DOCUSATE SODIUM TAB PO PRN (08:23)
[2017-03-14] MEDS: METOPROLOL SUCCINATE XR 100 MG TAB PO SCH (08:33)
[2017-03-14] MEDS ORDERED: FUROSEMIDE 20 MG TAB PO ONE (09:00)
[2017-03-14] MEDS: FLUTICASONE/SALMETER 250/50MCG DISKUS IH SCH ×2 (09:24→20:42)
--- NOTE | 2017-03-14 14:11 | HOSPPROG ---
Hospitalist Progress Note Assessment/Plan: * Multi vessel CAD, status post CABG x 2, POD #4 * Unstable Angina * ABLA, Hgb is stable, no indications for transfusion * Post op Afib, on Amio, BB, Eliquis * COPD * Pedal Edema * type 2 diabetes * Increased metformin and glyburide to home doses * obstructive sleep apnea * hypertension * alcoholism * Getting vodka * tobacco dependence * Nicotine patch * constipation Plan: -Cards following -BB/ASA/Statin/Eliquis/Amio -Lasix as needed, got 20mg this morning -CPAP -Nicotine patch -ISS, home DM meds -Schedule Vodka and Ativan as needed -Stool softner and suppository as needed, had multiple BM's yesterday Will likely discharge tomorrow Objective: Vital Signs Temp Pulse Resp BP Pulse Ox 36.7 C 87 20 112/72 93 03/14/17 11:07 03/14/17 11:07 03/14/17 11:07 03/14/17 11:07 03/14/17 11:07 Laboratory Results 03/14/17 06:00 03/14/17 06:00 03/13/17 03/14/17 03/15/17 05:59 05:59 05:59 Intake Total 1830 1670 520 Output Total 695 1075 550 Balance 1135 595 -30 - Physical Exam Constitutional: no apparent distress Eyes: PERRL, EOMI Ears, Nose, Mouth, Throat: moist mucous membranes, hearing normal Cardiovascular: regular rate and rhythym, No edema Respiratory: no respiratory distress Gastrointestinal: normoactive bowel sounds Skin: warm Neurologic: AAOx3 Psychiatric: interacting appropriately, not anxious, not encephalopathic ICD10 Worksheet Patient Problems: Problems Problem Status Onset Acute blood loss anemia Acute CAD, multiple vessel Acute Postoperative atrial fibrillation Acute S/P CABG x 3 Acute ~03/09/17 Alcohol abuse Chronic Aortic stenosis with bicuspid valve Chronic Current every day smoker Chronic SELENE on CPAP Chronic Type 2 diabetes mellitus Chronic
[2017-03-15] MEDS ORDERED: APIXABAN 5 MG TAB PO SCH
[2017-03-15] MEDS ORDERED: traMADol 50 MG TAB PO SCH
[2017-03-15] MEDS ORDERED: AMIODARONE HCL 200 MG TAB PO SCH
[2017-03-15] MEDS: traMADol 50 MG TAB PO PRN ×3 (02:37→12:56)
[2017-03-15] MEDS: VODKA 50 ML BOTTLE PO SCH (06:56)
[2017-03-15] MEDS: INSULIN LISPRO 100 UNIT/ML SC SCH (07:31)
[2017-03-15] MEDS: NICOTINE 21 MG/24 HR PATCH TD SCH (08:05)
--- NOTE | 2017-03-15 08:05 | SOAPPROG ---
SOAP Progress Note Assessment/Plan: Assessment: POD#6 CABGx3 (FINN-LAD, SVG-D2, SVG-RCA), EVH LLE, prophylactic AtriClip ligation WERNER, prophylactic Robicsek weave sternum Sx severe CAD with preserved LV systolic fx - s/p CABGx3. Stable early postop course. CTs and wires out. Secondary prevention with baby ASA, BB and statin. Postoperative paroxysmal atrial fibrillation - SR restored with Amio and escalating doses BB. Antithrombotic prophylaxis with Eliquis. Acute expected blood loss anemia - Stable without the need for transfusions. COPD - suspected, secondary to longstanding tobacco abuse (70 pk yr hx). Extubated POD#1 without incident. Transitioned from scheduled duonebs back to home MDIs. Willing to try to quit smoking or at least cut back w aid of nicotine patch. SELENE on CPAP - Stable. Home device in use. DM type II - Controlled by preop A1c 7.5%. Transitioned back to home OHAs by hospitalist. ETOH abuse - No withdrawal sx postop on modified CIWA protocol with permissive intake of vodka. Plan: Start lisinopril 5 mg daily. Cont gentle daily diuresis. Ok for home. Instructions re diet, meds, activity, wound care and f/u to be reviewed. 03/15/17 08:03 Subjective: Good pain relief with Tramadol. No concerns. Eager for home. Objective: Vital Signs Temp Pulse Resp BP Pulse Ox 36.6 C 92 12 122/79 H 94 03/15/17 07:08 03/15/17 07:08 03/15/17 07:08 03/15/17 07:08 03/15/17 07:08 Laboratory Results 03/14/17 06:00 03/15/17 02:30 03/14/17 03/15/17 03/16/17 05:59 05:59 05:59 Intake Total 1670 1140 Output Total 1075 1675 500 Balance 595 -535 -500 HR controlled. Rare PAF. Upward creeping SBP. Adequate fluid balance. Within 2 kg baseline wt. Physical Exam - Physical Exam General Appearance: alert, no apparent distress Respiratory: lungs clear (grossly) Cardiac/Chest: regular rate, rhythm, other (Sternum grossly stable. Sternotomy and CT sites CDI.) Abdomen: non-tender, soft Skin: warm/dry Extremities: swelling (1+ dependent vein donor leg) ICD10 Worksheet Patient Problems: Problems Problem Status Onset Acute blood loss anemia Acute CAD, multiple vessel Acute Postoperative atrial fibrillation Acute S/P CABG x 3 Acute ~03/09/17 Alcohol abuse Chronic Current every day smoker Chronic SELENE on CPAP Chronic Type 2 diabetes mellitus Chronic
[2017-03-15] MEDS: SENNOSIDES/DOCUSATE SODIUM TAB PO PRN (08:06)
[2017-03-15] MEDS: METOPROLOL SUCCINATE XR 100 MG TAB PO SCH (08:07)
[2017-03-15] MEDS: APIXABAN 5 MG TAB PO SCH (08:08)
[2017-03-15] MEDS: ATORVASTATIN CALCIUM 40 MG TAB PO SCH (08:08)
[2017-03-15] MEDS: glyBURIDE 2.5 MG TAB PO SCH (08:08)
[2017-03-15] MEDS: FOLIC ACID 1 MG TAB PO SCH (08:08)
[2017-03-15] MEDS: PANTOPRAZOLE SODIUM 40 MG TAB PO SCH (08:08)
[2017-03-15] MEDS: MULTIVITAMINS 1 EACH TAB PO SCH (08:09)
[2017-03-15] MEDS: metFORMIN HCL 500 MG TAB PO SCH (08:09)
[2017-03-15] MEDS: CITALOPRAM 20 MG TAB PO SCH (08:09)
[2017-03-15] MEDS: AMIODARONE HCL 200 MG TAB PO SCH (08:09)
[2017-03-15] MEDS: ASPIRIN 81 MG CHEWABLE TAB PO SCH (08:10)
--- NOTE | 2017-03-15 08:12 | PDHOMEO2F ---
Home Oxygen Face to Face Home Orders: I certify that a physician or a nurse practitioner or physician's assistant women's rowing coach has had a [id number] encounter with this patient on the date of this order due to the diagnosis listed, which relates to the primary reason the patient requires home oxygen. Alternative treatments have been tried, or considered, and deemed ineffective. It is anticipated that supplemental oxygen will result in improvement with treatment. Home oxygen qualifying diagnosis: CAD Home oxygen secondary diagnosis: SELENE on CPAP SpO2 on room air (%): 87% Frequency of home oxygen needed: continuous Home oxygen liters per minute: 1 lpm rest, 2 lpm activity Home oxygen delivery device: nasal cannula Concentrator: Yes E-tanks for mobility and back up: Yes If ordering portable O2, is the patient mobile in the home?: Yes I certify that, based on these findings, the home oxygen is medically necessary for this patient for the following length of time. Length of time home oxygen needed: 99 years (unknown)
[2017-03-15 08:15] VITALS: O2SAT 95
[2017-03-15] MEDS ORDERED: FUROSEMIDE 20 MG TAB PO SCH (09:00)
[2017-03-15] MEDS ORDERED: LISINOPRIL 5 MG TAB PO SCH (09:00)
[2017-03-15] MEDS: FLUTICASONE/SALMETER 250/50MCG DISKUS IH SCH (09:55)
--- NOTE | 2017-03-15 10:13 | PDDCSUM ---
Discharge Summary Discharge Summary: DATE OF ADMISSION: 03/09/17 DATE OF DISCHARGE: 03/15/17 DISPOSITION: Home, self-care PRINCIPAL ADMISSION DIAGNOSES: Multivessel coronary artery disease PRINCIPAL DISCHARGE DIAGNOSES: 1. Bicuspid aortic valve excluded by intraop transesophageal echocardiogram. 2. Status post coronary artery bypass grafting x 3 3. Status post prophylactic clip ligation of the left atrial appendage 4. Acute expected blood loss anemia 5. Postoperative paroxysmal atrial fibrillation HISTORY OF PRESENT ILLNESS: 56 yo with exertional angina discovered to have complex two vessel coronary artery disease not amenable to PCI and admitted for elective coronary artery bypass grafting. PERTINENT PAST MEDICAL HISTORY: HTN; hyperlipidemia; Type 2 diabetes; Current everyday smoker with > 50 pk yr hx ; probable COPD; ETOH abuse admitting daily consumption of 1 pint of vodka; SELENE on CPAP; Obesity; Reactive depression s/p wifes last year; Sclerotic aortic valve, possibly bicuspid, with mild MEDICATIONS ON ADMISSION: ASA 81 mg daily, Atorvastatin 40 mg daily, Lisinopril/HCTZ 20/12.5 one tab daily , Toprol XL 200 mg daily, Albuterol MDI 2 puffs IH q6 hrs prn, Advair 250/50 one puff IH BID, Metformin 1,000 mg BID, Glyburide 5 mg BID, Citalopram 20 mg daily, Ambien 5 mg HS prn, Ibuprofen 600 mg TID prn ALLERGIES/SENSITIVITIES: Percodan causing hallucinations CONSULTANTS: Pulmonology/critical care (Omar), Hospitalist (Zana) PROCEDURES/IMAGIN/29 (Fermín): Coronary artery bypass grafting x 3 (FINN-LAD, SV-D2, SV-RCA). Takedown left internal mammary artery. Endoscopic vein harvest left thigh. Prophylactic AtriClip ligation of the left atrial appendage. Prophylactic Robicsek weave of sternum. ABBREVIATED HOSPITAL COURSE BY ACTIVE PROBLEM LIST: 1. Sx severe CAD with preserved LV systolic fx - s/p CABGx3. Stable early postop course. Secondary prevention with baby ASA, BB and statin. 2. Postoperative PAF - Initially persistent, becoming less frequent after POD#3 on amio and escalating doses of BB. Antithrombotic prophylaxis with Eliquis x 1 mo for [id number] score of 2. 3. Acute expected blood loss anemia - Stable. No transfusions required. 4. COPD - suspected, secondary to longstanding tobacco abuse. Extubated POD#1 without incident. Home MDIs resumed. Willing to try to quit smoking w aid of nicotine patch. 5. DM type II - Controlled by preop A1c 7.5%. Transitioned from insulin back to home OHAs by hospitalist. 6. ETOH abuse - No withdrawal sx postop on modified CIWA protocol with permissive intake of vodka. Willing to modify intake once smoking controlled. 7. Hx AV sclerosis w mild AI - Trileaflet valve confirmed by intraop NASREEN. Surveillance per cards. DISCHARGE CLINICAL INFORMATION: Sternum grossly stable. Sternotomy and LLE venotomy CDI, sutured, +Dermabond. HR 80s. SBP 100s. SpO2 87% RA, correcting to > 91% on 1 Lpm. Wt 1.6 kg above admission at 111.1 kilos. WBC 9.3, Hgb 11.1, HCT 32.2, Plt 197, Na 138, K 4.1, Cr 0.8 DISCHARGE MEDICATIONS: As on admission with the following adjustments: 1. Hold Lisinopril/HCTZ. 2. Hold regular use of ibuprofen x 3 mo for interference with beneficial effects of ASA on graft flow. NEW prescriptions: 1. Amiodarone 200 mg BID thru 03/23, then 200 mg daily x 2 weeks. 2. Eliquis 5 mg BID x 1 month. 3. Lasix 2 mg daily. 4. Lisinopril 5 mg daily. 5. Nicoderm CQ 21 mg daily x 2 wks, then as directed by PCP. 6. Tramadol 50 mg one-half to two tabs q 6 hrs prn incisional discomfort. 7. O2 continuously @ 1 Lpm or as directed by SpO2. FOLLOW UP APPOINTMENTS: 1. CV surgery: with Dr Kovacs at [facility] on 03/24 at 10:45am. 2. Cardiology: with Dr Yancey at [facility] within 4-6 weeks. Appointment to be established during surgical visit. 3. PCP: in [place] within 2 wks for assistance smoking cessation. FOLLOW UP TESTING: CXR prior to surgical appointment.
[2017-03-15 11:14] VITALS: BP 101/66; PULSE 88; RESP 14; TEMP 98.6
--- NOTE | 2017-03-15 14:46 | ASDISCHSUM ---
Discharge Information Plan Status:Home with No Needs Medically Cleared to Leave:03/14/2017 Discharge Date:03/15/2017 02:15 PM CM D/C Disposition:Home, Routine, Self-Care ADT D/C Disposition:Home, Routine, Self-Care Projected Discharge Date:03/15/2017 11:00 AM Transportation at D/C:Friend Discharge Delay Reason: Follow-Up Date:03/15/2017 11:00 AM Discharge Slot: Final Diagnosis:Severe CAD-CABG x 3, Afib, Anemia, COPD, SELENE Placement Information Referral Type:*Care Home/SNF Referral ID:[id number] Provider Name: Address 1: Phone Number: Address 2: Fax Number: City: Selection Factors: State: Patient Contact Information Contact Name:NITIN Relationship:Friend Address:[address] [employer] [facility] Work Phone: City:[place] Alternate Phone: [facility]/Zip Code:[place] [address] Email: Financial Information Financial Class: Primary Plan Desc:[employer] [place] Primary Plan Number:[id number] Secondary Plan Desc: Secondary Plan Number: Assessment Information [facility] CM Progress Note CM Note CM Note Notes: 03/09/2017 Case Management Note Reviewed chart. Pt admitted for CABG. Case Management d/c needs are unclear at this time, awaiting PT and OT evals. Case Management d/c poc: TBD Case Management will follow. Date Signed: 03/09/2017 03:35 PM Electronically Signed By:Donna Brown RN [facility] CM Progress Note CM Note CM Note Notes: Spoke with patient about PT recommendation for SNF rehab. Patient states he is interested and would like to go somewhere close to his home in [place]. Referrals made to [facility] [place] and [facility]. Patient is getting vodkasQID to prevent withdrawal. CM will follow. Date Signed: 03/11/2017 04:37 PM Electronically Signed By:Karol Monroy LCSW [facility] CM Progress Note CM Note CM Note Notes: CM spoke w/ DESIREE Adhikari regarding d/c POC. Hinojosa in from [facility] to assess pt. CM completed ULTC-100 and faxed it to [facility]. CM faxed attached the ULTC-100 to [employer]. CM to follow. Plan: [facility] pending approval by [facility] Date Signed: 03/12/2017 03:02 PM Electronically Signed By:MARCELO Gutierrez [facility] CM Progress Note CM Note CM Note Notes: CM met w/ pt for dispo planning. A member from [facility] stopped by today to meet w/ pt. Pt told [facility] that he is not interested in SNF at this time. Pt reports that he can have a friend stay w/ him. Pt reports that he will pursue outpatient rehab. Pt reports that he is not interested in HC. CM available for changes. Plan: Independent Date Signed: 03/13/2017 03:05 PM Electronically Signed By:MARCELO Gutierrez Case Management Discharge Plan Note Case Management Discharge Discharge Order Complete? Answers: Yes Patient to Obtain Answers: Independently Medications Transportation Arranged Answers: Family/Friends Transport will Pick (Date 03/15/2017 12:00 AM & Time) Discharge Comments Notes: Patient has been discharged. He will spend time at a friend's house and go to Cardiac Rehab. He declined going to a SNF, Date Signed: 03/15/2017 12:29 PM Electronically Signed By:Perla Duke LCSW Intervention Information
--- NOTE | 2017-03-15 16:48 | GCON ---
[f rep st] CONSULTATION PULMONARY/CRITICAL CARE CONSULTATION DATE OF CONSULTATION: 03/09/2017 REFERRING PHYSICIAN: Jose Kovacs DO REASON FOR CONSULTATION: Evaluation and management of obstructive sleep apnea and COPD. HISTORY OF PRESENT ILLNESS: The patient is a 56-year-old male with a history of coronary artery dise ase, who had worsening left arm and chest discomfort with exertion. He was found to have significant coronary artery disease, and coronary artery bypass grafting was recommended. His intraoperative co urse was unremarkable following coronary bypass grafting x3 and atrial clip to the left atrial append age. He was returned to the intensive care unit intubated. PAST MEDICAL HISTORY: 1. COPD. He smokes over a pack of cigarettes daily. 2. Alcoholism. He drinks at least a pint of alcohol daily. 3. Obstructive sleep apnea. 4. Type 2 diabetes. 5. Hypertension. MEDICATIONS: At the time of admission include Advair, Ambien, aspirin, citalopram, glyburide, ibupro fen, lisinopril/hydrochlorothiazide, lovastatin, metformin, metoprolol, and ProAir. ALLERGIES: Oxycodone. FAMILY HISTORY: Unremarkable. REVIEW OF SYSTEMS: Unobtainable, as the patient is intubated. PHYSICAL EXAMINATION: VITAL SIGNS: Blood pressure is 171/75 with a heart rate of 88. He is afebril e, with a temperature of 36.3. His oxygen saturations are 98% on 70% oxygen. HEENT: Normocephalic and atraumatic. No icterus. NECK: No adenopathy. Trachea is midline. CHEST: Clear to auscultati on. CARDIAC: Regular rate and rhythm without murmur. He has a midline sternotomy scar. ABDOMEN: Soft, nontender. Bowel sounds are present. EXTREMITIES: No clubbing, cyanosis, or edema. NEURO: The patient is intubated and sedated, but is starting to arouse. He is moving all extremities weakly . LABORATORY DATA: Hemoglobin is 12.9. A chemistry group is remarkable for a glucose of 158. An david ria blood gas shows a pH of 7.30 with a pO2 of 80, a CO2 of 51, and a bicarbonate of 27 on 70% oxyge n. A chest x-ray at shows some probable pulmonary venous hypertension and also some linear atelectasis i n the left midlung. Images were reviewed by me. ASSESSMENT: 1. Status post coronary artery bypass grafting. The patient's intraoperative course was unremarkabl e. 2. History of tobacco abuse. The patient probably has chronic obstructive pulmonary disease. He is on Advair as an outpatient. His oxygenation is good, but he is still requiring 70% supplemental oxy gen. 3. Obstructive sleep apnea. The patient will use continuous positive airway pressure with sleep onc e he is extubated. 4. Diabetes. Blood sugars are good on insulin drip. 5. Alcohol abuse. The patient has chronic heavy daily alcohol use. RECOMMENDATIONS: 1. Continue insulin drip. This can be transitioned to sliding scale insulin once his blood sugars a re well controlled on low-dose insulin. 2. Start p.o. vodka once the patient is extubated. 3. Use DuoNeb and Advair. 4. CPAP when sleeping. /[id number]/MODL
== END 2017-03-15 14:15 | disposition home or self-care (01) | DRG 236 ==
LOC: F3N 08:08 → F2N 11:11 → F2W 03-12 09:40
PROVIDERS: ADMIT Thoracic Surgery (Cardiothoracic Vascular Surgery); ATTEND Thoracic Surgery (Cardiothoracic Vascular Surgery)
PROC: 021109W Bypass Coronary Artery, Two Arteries from Aorta with Autologous Venous Tissue, Open Approach (ICD-10-PCS; principal; 2017-03-09 09:45)
PROC: 06BQ4ZZ Excision of Left Saphenous Vein, Percutaneous Endoscopic Approach (ICD-10-PCS; principal; 2017-03-09 09:45)
PROC: 5A1945Z Respiratory Ventilation, 24-96 Consecutive Hours (ICD-10-PCS; principal; 2017-03-09 09:45)
PROC: 02L70ZK Occlusion of Left Atrial Appendage, Open Approach (ICD-10-PCS; principal; 2017-03-09 09:45)
PROC: 5A1221Z Performance of Cardiac Output, Continuous (ICD-10-PCS; principal; 2017-03-09 09:45)
PROC: 02100Z9 Bypass Coronary Artery, One Artery from Left Internal Mammary, Open Approach (ICD-10-PCS; principal; 2017-03-09 09:45)
DX: I25.110 Atherosclerotic heart disease of native coronary artery with unstable angina pectoris (principal); D62 Acute posthemorrhagic anemia; I97.190 Other postprocedural cardiac functional disturbances following cardiac surgery; I48.0 Paroxysmal atrial fibrillation; Q23.1 Congenital insufficiency of aortic valve; F10.230 Alcohol dependence with withdrawal, uncomplicated; I25.82 Chronic total occlusion of coronary artery; K59.00 Constipation, unspecified; E11.9 Type 2 diabetes mellitus without complications; F17.210 Nicotine dependence, cigarettes, uncomplicated; I10 Essential (primary) hypertension; J44.9 Chronic obstructive pulmonary disease, unspecified; F32.9 Major depressive disorder, single episode, unspecified; E78.5 Hyperlipidemia, unspecified; G47.33 Obstructive sleep apnea (adult) (pediatric); E66.01 Morbid (severe) obesity due to excess calories; Z68.34 Body mass index [BMI] 34.0-34.9, adult; Z79.82 Long term (current) use of aspirin
CPT/HCPCS: 82947-QW; 97110-GP; 97116-GP; 97161-GP; 97166-GO; 97530-GO; 97530-GP; 97535-GO; J0153; J0282; J0690; J1100; J1170; J1265; J1644; J1815; J1940; J2001; J2060; J2150; J2250; J2260; J2370; J2405; J2440; J2704; J2720; J2765; J2930; J3010; J7060; P9041

== ENCOUNTER → 2017-03-23 | Outpatient (CLI) | payer MEDICAID | LOC: FIMAGING 10:00 | PROVIDERS: ATTEND Thoracic Surgery (Cardiothoracic Vascular Surgery) | DX: Z09 Encounter for follow-up examination after completed treatment for conditions other than malignant neoplasm (principal); J93.9 Pneumothorax, unspecified; J81.1 Chronic pulmonary edema; J90 Pleural effusion, not elsewhere classified; Z95.1 Presence of aortocoronary bypass graft ==

== ENCOUNTER 2017-04-12 03:26 | Inpatient (IN) | payer MEDICAID ==
[2017-04-12] MEDS ORDERED: NS 1,000 ML IV SCH (05:50)
[2017-04-12] MEDS ORDERED: VANCOMYCIN HCL/NORMAL SALINE 250 ML IV ONE (06:00)
[2017-04-12] MEDS ORDERED: MINERAL OIL 10 ML VIAL ONE (06:19)
[2017-04-12] MEDS ORDERED: fentaNYL 250 MCG/5 ML INJ ONE (06:42)
[2017-04-12] MEDS ORDERED: PROPOFOL 200 MG/20 ML VIAL ONE (06:42)
[2017-04-12] MEDS ORDERED: MIDAZOLAM 2 MG/2 ML VIAL ONE (06:43)
--- NOTE | 2017-04-12 06:54 | PDANEPAE ---
ANE Past Medical History - Cardiovascular History Hx Hypertension: Yes Hx Arrhythmias: No Hx Chest Pain: Yes Hx Coronary Artery / Peripheral Vascular Disease: Yes Hx CHF / Valvular Disease: No Hx Palpitations: No Cardiovascular History Comment: heart murmur - Pulmonary History Hx COPD: Yes Hx Asthma/Reactive Airway Disease: Yes Hx Recent Upper Respiratory Infection: No Hx Oxygen in Use at Home: Yes O2 in Use at Home (L/minute): 2 Hx Sleep Apnea: Yes Pulmonary History Comment: smoking since 4 yrs old, currently smokes 1,1/2 packs a day - Neurologic History Hx Cerebrovascular Accident: No Hx Seizures: No Hx Dementia: No - Endocrine History Hx Diabetes: Yes Endocrine History Comment: type 2 - Renal History Hx Renal Disorders: No - Liver History Hx Hepatic Disorders: No - Neurological & Psychiatric Hx Hx Neurological and Psychiatric Disorders: Yes Neurological / Psychiatric History Comment: anxiety and deppression. hx of suicidal ideation with attempt. 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 - Cancer History Hx Cancer: No - Congenital Disorder History Hx Congenital Disorders: No - GI History Hx Gastrointestinal Disorders: No - Other Health History Other Health History: two ruptured disc's in lower back - Chronic Pain History Chronic Pain: No - Surgical History Prior Surgeries: none ANE Review of Systems Review of Systems: - Exercise capacity Exercise capacity: limited by disability ANE Patient History - Allergies Allergies/Adverse Reactions: oxycodone [From Percodan] Allergy (Severe, Verified 03/12/17 16:17) Other-Enter Comments - Home Medications Home Medications: Albuterol [Proventil Inhaler HFA (*)] 2 puffs IH Q6HRS PRN 03/03/17 [Last Taken 03/08/17] Aspirin [Aspirin 81mg (*)] 81 mg PO DAILY 03/03/17 [Last Taken 03/08/17] Citalopram [CeleXA 20 MG] 20 mg PO DAILY 03/03/17 [Last Taken 03/08/17] Fluticasone/Salmeter 250/50Mcg [Advair 250/50 (*)] 1 puffs IH BID 03/03/17 [ Last Taken 03/08/17] Metoprolol Succinate Xr [Toprol Xl 100 mg (*)] 200 mg PO DAILY 03/03/17 [Last Taken 03/08/17] Zolpidem Tartrate [Ambien 5MG (*)] 5 mg PO HS PRN 03/03/17 [Last Taken 03/08/17] glyBURIDE [Glyburide] 5 mg PO BIDMEAL 03/03/17 [Last Taken 03/08/17] metFORMIN HCL [Glucophage 1000 mg] 1,000 mg PO BIDMEAL 03/03/17 [Last Taken ] - Anes Hx Anes Hx: no prior problems - Smoking Hx Smoking Status: Former smoker - Alcohol Use Alcohol Use: Heavy - Family Anes Hx Family Hx Anesthesia Complications: none ANE Labs/Vital Signs - Vital Signs Blood Pressure: 122/64 Heart Rate: 68 Respiratory Rate: 16 O2 Sat (%): 95 Height: 180.34 cm Weight: 107.1 kg ANE Physical Exam - Airway Mallampati Score: Class 2 Mouth exam: normal dental/mouth exam - Pulmonary Pulmonary: no respiratory distress, no rales or rhonchi, clear to auscultation - Cardiovascular Cardiovascular: regular rate and rhythym, no murmur, rub, or gallop - ASA Status ASA Status: III ANE Anesthesia Plan Anesthesia Plan: general endotracheal anesthesia
--- NOTE | 2017-04-12 07:09 | GHP ---
[f rep st] HISTORY AND PHYSICAL ADMITTING DIAGNOSES: 1. Mediastinal dehiscence, rule out mediastinitis. 2. Morbid obesity. 3. Alcoholism. 4. Chronic obstructive pulmonary disease. 5. Diabetes mellitus. 6. Hyperlipidemia. 7. Hypertension. 8. Sleep apnea. PLAN: The patient has been kept n.p.o. We will take him to the OR and explore his sternum today. If, in fact, it appears to be infected, we will likely place a wound VAC for delayed closure. Otherwise, it could just represent sternal nonunion. The patient is afebrile and his white count is normal. He has had no sweats or chills. There is no obvious drainage. The patient was advised of the same. Consent was obtained. CHIEF COMPLAINT: Sternal pain. HISTORY OF CHIEF COMPLAINT: The patient has had some sternal nonunion since surgery. He is a large man, who did not protect his chest perioperatively, despite multiple admonitions. He was kept on alcohol to avoid DTs and had smoked up until the day of surgery. He underwent urgent coronary artery bypass grafting with left internal mammary artery to the distal LAD, saphenous vein graft to the 2nd diagonal, saphenous vein to the right coronary artery. Distal vessels were of very poor quality. He did recover without significant sequelae postoperatively, although he performed no sternal protection at all. He was discharged on 03/15/2017, with additional diagnosis of postoperative paroxysmal atrial fibrillation. Otherwise, no complications. Chief complaint of sternal pain which began several days prior. He did have some notable sternal clicking and popping sensation after arriving home. This was not elicited during his postoperative visits, however, in the office. He was discharged back to Cardiology. Today, he presented to [facility] by ambulance with sternal pain and swelling. A CAT scan was obtained. Lab work was obtained. Please see chart. He was transferred. PREVIOUS MEDICAL HISTORY: As stated. PREVIOUS SURGERIES: Include coronary bypass grafting on 03/09/2017. CURRENT MEDICATIONS: Please see hospital chart. SOCIAL HISTORY: Socially, he drinks at least a pint a day of homemade alcohol. He has a greater than 40 pack-year history of cigarette abuse. He has backed off on the cigarettes and has decreased his drinking. He had only 1 drink last night. FAMILY HISTORY: Noncontributory. REVIEW OF SYSTEMS: He complains of persistent chest pain since surgery, now with noted clicking and popping, and some swelling. PHYSICAL EXAMINATION: This is an obese, middle-aged gentleman, awake, alert, on bed, in no apparent distress. HEENT is normocephalic, ADELSO, EOMI. Neck without bruit, adenopathy, or thyromegaly. Heart rate is regular without murmur , S3, or S4. The sternum is tender. There is some collection, apparently at the top of the sternum. There is no obvious drainage or redness. There is palpable sternal movement with any coughing or movement of his arms. Lungs are clear. Abdomen is soft, nontender. Bowel sounds are active. Rectal and genital exams were deferred. Neurologically, he is grossly intact. Please see labs associated from [facility]. /[id number]/MODL MTDD
[2017-04-12] MEDS ORDERED: ONDANSETRON 4 MG/2 ML VIAL IVP PRN (07:26)
[2017-04-12] MEDS ORDERED: LR 500 ML IV PRN (07:26)
[2017-04-12] MEDS ORDERED: DIAZEPAM 5 MG/ML 1 ML SYR IVP PRN (07:26)
[2017-04-12] MEDS ORDERED: fentaNYL 100 MCG/2 ML INJ IVP PRN (07:26)
[2017-04-12] MEDS ORDERED: HYDROCODONE/APAP 5/325 TAB PO PRN (07:26)
[2017-04-12] MEDS ORDERED: PROMETHAZINE HCL 25 MG/ML INJ IVP PRN (07:26)
[2017-04-12] MEDS ORDERED: ONDANSETRON 4 MG/2 ML VIAL ONE (07:26)
[2017-04-12] MEDS ORDERED: NALOXONE HCL 0.4 MG/ML INJ IVP PRN (07:26)
[2017-04-12] MEDS ORDERED: LIDOCAINE 2% 5 ML SDV ONE (07:29)
--- NOTE | 2017-04-12 08:09 | POSTANESTH ---
Post Anesthetic Evaluation Cardiovascular Status: Normal, Stable, Similar to Pre-Op Cond Respiratory Status: Normal, Stable, Similar to Pre-op Cond. Level of Consciousness/Mental Status: Can Participate in Eval, Mildly Sleepy, Arousable Pain Control: Adequate, Prn Tx Ordered Nausea/Vomiting Control: Adequate, Prn Tx Ordered Complications Possibly Related to Anesthesia: None Noted
[2017-04-12] MEDS ORDERED: ACETAMINOPHEN 325 MG TAB PO PRN ×2 (08:49→10:33)
[2017-04-12] MEDS ORDERED: METOCLOPRAMIDE 10 MG/2 ML VIAL IVP PRN (08:49)
[2017-04-12] MEDS ORDERED: METOCLOPRAMIDE 10 MG TAB PO PRN (08:49)
[2017-04-12] MEDS: HYDROCODONE/APAP 5/325 TAB PO PRN ×4 (09:49→23:32)
--- NOTE | 2017-04-12 10:23 | PDMN ---
Medical Necessity Medical necessity: C/M review: est. > 2 MN LOS for eval and TX of postop subpleural abscess requiring emergent 04/12/2017 surgery - sternal debridement, irrigation and drainage, wound Vac placement requiring Infectious Disease consult, ongoing IV Vancomycin, cardiac monitoring, comorbid recent hospitalization for 02/28/2017 CABG surgery per surgery operative report.
[2017-04-12] MEDS ORDERED: ALBUTEROL 60 PUFFS/8 GM MDI IH PRN (10:33)
[2017-04-12] MEDS ORDERED: ZOLPIDEM TARTRATE 5 MG TAB PO PRN (10:33)
[2017-04-12] MEDS: CITALOPRAM 20 MG TAB PO SCH (11:27)
[2017-04-12] MEDS: NICOTINE 21 MG/24 HR PATCH TD SCH (11:31)
[2017-04-12] MEDS: FLUTICASONE/SALMETER 250/50MCG DISKUS IH SCH ×2 (12:36→20:30)
--- NOTE | 2017-04-12 14:26 | GCON ---
[f rep st] CONSULTATION INFECTIOUS DISEASE CONSULTATION DATE OF CONSULTATION: 04/12/2017 REFERRING PHYSICIAN: Jose Kovacs DO REASON FOR CONSULTATION: Postoperative sternal wound infection, for further evaluation. CHIEF COMPLAINT: Redness, pain and swelling over the surgical incision site. HISTORY OF PRESENT ILLNESS: He is a 56-year-old male who has a past medical history of morbid obesity, hypertension, diabetes mellitus type 2, coronary artery disease, who underwent cardiac evaluation on the 03 of March and was found to have multivessel disease. On the 09 of March, he had an elective CABG x2. Postoperatively, he states he was doing well. He states that about a week ago, he twisted his chest to reach for something behind him, and he noticed that he felt that his sternum had , and then he came back to normal position, and he felt like it had kind of came back to the normal position. But since that time, he started to have increasing pain over his chest and increasing redness over the upper portion of his incision site with some swelling. Due to the pain, he came into [facility] early this morning for further evaluation. At that facility, he was noted to have a leukocytosis of 10.3 with an elevated CRP of 31. He denies fevers or shaking chills. He was taken to the OR early this morning, where he had incision site opened up and there was thick, serous-like material noted for the majority of that part of the wound, and then on the upper part of the wound there was some milky, thick material. This was cultured. Fluid tracked down to the sternum, but not beneath the sternum. He then was placed with a wound VAC and sent up to the floor. The patient is given a dose of vancomycin 1 g. Blood cultures were not done at [facility] during the evaluation there and they have not been done here. The patient states that he feels so much better since surgery, with significant improvement in degree of pain. Infectious Disease is now consulted for further evaluation and opinion regarding the above. REVIEW OF SYSTEMS: GENERAL: No fevers or shaking chills. Headaches: No headaches. EYES: No change in vision. ENT: No sore throat, difficulty swallowing, ear pain or drainage. CARDIOVASCULAR: Was having some pain regarding his incision site. RESPIRATORY: Denies any shortness of breath. He has a chronic cough. No sputum production. ABDOMEN: No nausea, vomiting, abdominal pain, diarrhea. : No dysuria or hematuria. MUSCULOSKELETAL: No complaints of muscle aches or joint pains. SKIN: No other areas of rashes or open wounds. The rest of a 10-point review of systems was essentially negative, except for the above. PAST MEDICAL HISTORY: Significant for diabetes mellitus, dyslipidemia, coronary artery disease, obesity, hypertension, alcohol use, tobacco use, bicuspid aortic valve, obstructive sleep apnea, depression. PAST SURGICAL HISTORY: Significant for a recent CABG x2 on March 09, 2017, hemorrhoidectomy. ALLERGIES: No known drug allergies. SOCIAL HISTORY: He is a former smoker. He has tried to quit since his sinus surgery. He has probably had 1 or 2 cigarettes since the time of surgery. He drinks alcohol about 8 ounces maybe every other day of vodka or rum. His some years ago. He has 3 dogs which are healthy. FAMILY HISTORY: His mother committed suicide when he was 5 and his father was killed in a motor vehicle accident when he was age 11. There is alcohol in the family. MEDICATIONS: As per MAR. PHYSICAL EXAMINATION: VITAL SIGNS: Temperature current 36.6, pulse is 75, blood pressure 112/70s, saturations are 92% on 4 L O2 via nasal cannula, respiratory rate 21. GENERAL: He is sitting up in a chair in no acute respiratory distress. Awake, alert, and oriented x3 HEENT. HEENT: Head is normocephalic, atraumatic. Eyes without conjunctival injection or petechiae. Oropharynx is clear. No posterior erythema or thrush. CARDIOVASCULAR: S1, S2. Regular rate and rhythm. RESPIRATORY: Clear to auscultate bilaterally. No rhonchi or rales appreciated. CHEST: Midline incision site noted with a wound VAC in place. There is erythema just outside the upper portion of the wound VAC. SKIN: Sensitive to touch all over. ABDOMEN: Positive bowel sounds in all quadrants. Soft, nontender, nondistended. EXTREMITIES: No lower extremity edema. MUSCULOSKELETAL: No obvious joint effusions. LABORATORY DATA: Labs from [facility] done early this morning shows a white blood cell count of 10.3, neutrophil count of 51%, hemoglobin 13.1 , platelets 402. Sodium 131, potassium 4.6, chloride 92, bicarb is 26, BUN is 14, creatinine 0.9, glucose 218. C-reactive protein 31. Chest CT done at [facility] shows a nonunion of the median sternotomy. There is a left para midline subpleural collection with gas noted anterior to the sternum measuring 7.8 x 3.5 x 2.1, around the sternal mandibular junction region. Please see official report through [facility] for further details. 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 PLAN: Currently, all cultures are in progress. We will continue to follow those. Patient is currently empirically on vancomycin. We will do 1 g q.8 hours for now. The patient will require a trough between 15-20. This was discussed and care was coordinated with the Pharmacy team. We will repeat labs in the a.m. Plan of care was discussed at length with the patient. Records reviewed from [facility] via [facility]. Care was coordinated with Dr. Kovacs earlier today. Greater than 70 minutes spent in coordination of care of patient. I thank you very much for the opportunity to care for your patient in consultation. /[id number]/MODL MTDD
[2017-04-12] MEDS: VANCOMYCIN HCL/NORMAL SALINE 250 ML IV SCH ×2 (14:31→22:14)
--- NOTE | 2017-04-12 15:51 | ASMTCMCOM ---
CM Note CM Note Notes: 56 yr old male admitted S/P CABG x 2 for a sternal wound infection. He has a hx of ETOH, Smoking, Obesity, COPD, DM, HTN, HLD, SELENE. ID consulting-IV ABX. Therapies to ANDRA garcia to follow for discharge needs. Date Signed: 04/12/2017 03:50 PM Electronically Signed By:Perla Duke LCSW
[2017-04-12] MEDS: metFORMIN HCL 500 MG TAB PO SCH (17:04)
[2017-04-12] MEDS: VODKA 50 ML BOTTLE PO SCH ×2 (17:04→19:48)
[2017-04-12] MEDS: glyBURIDE 5 MG TAB PO SCH (17:04)
[2017-04-12] MEDS ORDERED: NON-FORMULARY NEW DRUG (Metformin Hcl [Glucophage 1000 Mg] 1,000 MG) PO SCH (18:00)
[2017-04-12] MEDS: APIXABAN 5 MG TAB PO SCH (19:48)
[2017-04-13] MEDS: HYDROCODONE/APAP 5/325 TAB PO PRN ×5 (03:37→20:21)
--- NOTE | 2017-04-13 07:17 | SOAPPROG ---
SOAP Progress Note Assessment/Plan: POD #1: wire removal, debridement of sternal wound, vac placement 03/09/17: CABGx3, EVH left leg, AtriClip WERNER Sternal wound infection s/p debridement/vac placement - ABX as per ID, cultures pending, WBC normal - Vac to be changed MWF by wound care team - Plan for plastics consult for eventual closure CAD s/p CABGx3 - BB/ASA/statin for secondary prevention Postoperative paroxysmal atrial fibrillation - Continue BB/Eliquis - Amiodarone stopped ETOH/tobacco abuse - Continue Vodka QID/nicotine patch Subjective: Would like 3 bottles of vodka 4x per day instead of 2. Upset about need for hospital stay. Objective: Vital Signs Temp Pulse Resp BP Pulse Ox 36.7 C 85 16 152/71 H 95 04/13/17 04:00 04/13/17 04:00 04/13/17 04:00 04/13/17 04:00 04/13/17 04:00 Microbiology 04/12/17 07:26 Gram Stain - Final Other - Eswab 04/12/17 04/13/17 04/14/17 05:59 05:59 05:59 Intake Total 0 1250 Output Total 2300 Balance 0 -1050 Physical Exam - Physical Exam General Appearance: WD/WN, alert, no apparent distress EENT: No scleral icterus (R), No scleral icterus (L) Neck: normal inspection Respiratory: No respiratory distress Cardiac/Chest: regular rate, rhythm, other (vac in place) Abdomen: non-tender, soft, No distended Skin: normal color, warm/dry Extremities: No pedal edema Neuro/Psych: no motor/sensory deficits, alert, normal mood/affect, oriented x 3 ICD10 Worksheet Patient Problems: Problems Problem Status Onset Acute blood loss anemia Acute CAD, multiple vessel Acute Postoperative atrial fibrillation Acute S/P CABG x 3 Acute ~03/09/17 Alcohol abuse Chronic Current every day smoker Chronic SELENE on CPAP Chronic Type 2 diabetes mellitus Chronic
[2017-04-13] MEDS: VODKA 50 ML BOTTLE PO SCH ×4 (07:26→20:20)
[2017-04-13 07:30] LABS: PLATELET COUNT 233 10^3/uL (150-400)
[2017-04-13] MEDS: glyBURIDE 5 MG TAB PO SCH ×2 (08:19→17:29)
[2017-04-13] MEDS: METOPROLOL SUCCINATE XR 100 MG TAB PO SCH (08:19)
[2017-04-13] MEDS: APIXABAN 5 MG TAB PO SCH ×2 (08:20→20:20)
[2017-04-13] MEDS: CITALOPRAM 20 MG TAB PO SCH (08:20)
[2017-04-13] MEDS: ATORVASTATIN CALCIUM 40 MG TAB PO SCH (08:20)
[2017-04-13] MEDS: metFORMIN HCL 500 MG TAB PO SCH ×2 (08:20→17:29)
[2017-04-13] MEDS: ASPIRIN 81 MG CHEWABLE TAB PO SCH (08:20)
[2017-04-13] MEDS: NICOTINE 21 MG/24 HR PATCH TD SCH (08:21)
[2017-04-13] MEDS: VANCOMYCIN HCL/NORMAL SALINE 250 ML IV SCH ×2 (09:14→15:22)
[2017-04-13] MEDS ORDERED: BISACODYL 10 MG SUPP PR PRN (09:22)
[2017-04-13] MEDS: FLUTICASONE/SALMETER 250/50MCG DISKUS IH SCH ×2 (09:47→19:56)
[2017-04-13] MEDS: POLYETHYLENE GLYCOL 3350 17 GM PKT PO PRN (10:14)
--- NOTE | 2017-04-13 13:44 | ASMTCMCOM ---
CM Note CM Note Notes: POD #1 debridement of sternal wound and wound vac placement. Not clear when pt will go back to surg for wound closure; he will have plastics consult per MD progress note. DC needs not clear at this time. Pt lives at home alone. He was seen by PT today and they are recommending out pt cardiac rehab. CM will follow. Date Signed: 04/13/2017 01:43 PM Electronically Signed By:Lore Lang RN
--- NOTE | 2017-04-13 14:08 | PDCONSULT ---
Insurance Office Manager Note: 56 y/o male with open sternal wound s/p washout 3/4/18. 5-6 w s/p CABG. Mult medical problems. Discussed options for secondary healing with wound vac vs operative debridement and closure. Pt anxious to return home and return to work. Will plan exploration and closure for tomorrow. NPO ot 0600. Cont abx per ID. High risk pt 2ndart to mult medical problems. Pt verbalized understanding of medical situation.
[2017-04-13] MEDS ORDERED: VANCOMYCIN 1.25 GM in D5W 250 ML IV SCH (15:30)
--- NOTE | 2017-04-13 15:33 | PCMIDPN ---
Assessment/Plan: Assessment/Plan: * Sternal wound infection status post CABG: Cultures no growth to date. Plans for operative closure by Plastic surgery tomorrow. Will increase vancomycin 1.25 g IV q.8 hours given trough with 1 g IV q.8 hours 6.6. Suspect may be difficult to achieve therapeutic trough. Await cultures to provide additional guidance regarding targeted antibiotic therapy. Follow creatinine while on vancomycin. 04/13/17 15:14 Subjective: Residual tenderness along sternal wound. Plans for operative debridement and closure by Plastic surgery tomorrow. Objective: Vital Signs Temp Pulse Resp BP Pulse Ox 37.1 C 96 12 101/61 95 04/13/17 12:04 04/13/17 12:04 04/13/17 12:04 04/13/17 12:04 04/13/17 12:04 Microbiology 04/12/17 07:26 Gram Stain - Final Other - Eswab Laboratory Results 04/13/17 07:06 04/13/17 07:06 04/12/17 04/13/17 04/14/17 05:59 05:59 05:59 Intake Total 0 1250 Output Total 2300 300 Balance 0 -1050 -300 C-Reactive Protein 71.3 mg/L (<10.0) H 04/13/17 07:06 Vancomycin # 2 Sternal wound culture no growth today - Physical Exam General Appearance: alert, no apparent distress EENT: No scleral icterus, No thrush Respiratory: lungs clear Cardiac/Chest: other (Wound VAC in place centrally with tenderness around sternal margins) Abdomen: non-tender, No distended ICD10 Worksheet Patient Problems: Problems Problem Status Onset Acute blood loss anemia Acute CAD, multiple vessel Acute Postoperative atrial fibrillation Acute S/P CABG x 3 Acute ~03/09/17 Alcohol abuse Chronic Current every day smoker Chronic SELENE on CPAP Chronic Type 2 diabetes mellitus Chronic
[2017-04-13] MEDS: VANCOMYCIN 1.25 GM in NS 250 ML IV SCH ×2 (16:36→23:43)
[2017-04-13] MEDS: SENNOSIDES/DOCUSATE SODIUM TAB PO SCH (20:20)
[2017-04-14] MEDS: HYDROCODONE/APAP 5/325 TAB PO PRN ×6 (00:30→23:54)
[2017-04-14] MEDS: VODKA 50 ML BOTTLE PO SCH ×4 (05:22→20:43)
[2017-04-14] MEDS: glyBURIDE 5 MG TAB PO SCH ×2 (06:57→17:39)
[2017-04-14] MEDS: metFORMIN HCL 500 MG TAB PO SCH ×2 (06:57→17:39)
[2017-04-14] MEDS: ATORVASTATIN CALCIUM 40 MG TAB PO SCH (06:59)
--- NOTE | 2017-04-14 07:28 | SOAPPROG ---
SOAP Progress Note Assessment/Plan: Assessment: POD#2 Debridement of sternal wound with hardware removal and wound vac placement 03/09/17: CABGx3, EVH left leg, AtriClip Shane CALDERA weave Sternal wound infection s/p debridement/vac placement - ABX as per ID, cultures NGTD, WBC normal - Vac to be changed MWF by wound care team CAD s/p CABGx3 - BB/ASA/statin for secondary prevention Postoperative paroxysmal atrial fibrillation - Continue BB/Eliquis - Amiodarone stopped ETOH/tobacco abuse - Continue Vodka QID/nicotine patch Plan: NPO for plastics debridement and possible flap closure today at 2pm. 04/14/17 07:27 Subjective: Sore. Recurrent neg pressure alarm on vac. Objective: Vital Signs Temp Pulse Resp BP Pulse Ox 36.6 C 73 18 122/73 H 94 04/14/17 04:00 04/14/17 04:00 04/14/17 04:00 04/14/17 04:00 04/14/17 04:00 Microbiology 04/12/17 07:26 Gram Stain - Final Other - Eswab Laboratory Results 04/13/17 07:06 04/14/17 03:44 04/13/17 04/14/17 04/15/17 05:59 05:59 05:59 Intake Total 1250 2745 Output Total 2300 2810 Balance -1050 -65 Cardioresp status stable. Remains afeb. Wound vac good seal, cont low intensity @ 50 mmHg. Tubing patent. Generator on floor. Intermittent neg pressure alarm unclear. Cr stable. Physical Exam - Physical Exam General Appearance: alert, no apparent distress Respiratory: lungs clear (grossly) Cardiac/Chest: regular rate, rhythm, other (Vac intact. Periwound soft, no erythema) Abdomen: non-tender, soft Skin: warm/dry Extremities: other (LLE venotomy healing well. No visible dependent edema) ICD10 Worksheet Patient Problems: Problems Problem Status Onset Acute blood loss anemia Acute CAD, multiple vessel Acute Postoperative atrial fibrillation Acute S/P CABG x 3 Acute ~03/09/17 Alcohol abuse Chronic Current every day smoker Chronic SELENE on CPAP Chronic Type 2 diabetes mellitus Chronic
[2017-04-14] MEDS: METOPROLOL SUCCINATE XR 100 MG TAB PO SCH (07:57)
[2017-04-14] MEDS: VANCOMYCIN 1.25 GM in NS 250 ML IV SCH ×3 (08:05→23:26)
[2017-04-14] MEDS: MAGNESIUM HYDROXIDE 30 ML UDCUP PO PRN ×2 (08:05→20:50)
[2017-04-14] MEDS: APIXABAN 5 MG TAB PO SCH ×2 (08:06→20:44)
[2017-04-14] MEDS: SENNOSIDES/DOCUSATE SODIUM TAB PO SCH ×2 (08:06→20:44)
[2017-04-14] MEDS: ASPIRIN 81 MG CHEWABLE TAB PO SCH (08:06)
[2017-04-14] MEDS: CITALOPRAM 20 MG TAB PO SCH (08:06)
[2017-04-14] MEDS: NICOTINE 21 MG/24 HR PATCH TD SCH (08:06)
[2017-04-14] MEDS: FLUTICASONE/SALMETER 250/50MCG DISKUS IH SCH ×2 (08:55→20:57)
--- NOTE | 2017-04-14 09:39 | PCMIDPN ---
Assessment/Plan: Assessment/Plan: 1. Post operative sternal wound infection with likely osteomyelitis: - s/p removal of wires, debridement - Cultures with ngtd. Will continue to follow -In discussion with Dr. Kovacs, thick serous, milky fluid down to sternal but not below. Operative note pending. - Going for closure by Plastics today at 2pm -On Vanco. dose changed on 04/13/17. Will recheck trough later today. -Add cpk to blood work as well ,as may eventually switch to Daptomycin for easier OP therapy. He is on a statin so this will need to be held if possible. - Creatinine stable. Continue to monitor labs while on treatment -PLan of care reviewed with patient Meds vanco 1.25gm q8- Subjective: afebrile. tender around wound vac. denies sob, abd pain. hasn't moved bowels. going for surgery later today around 2pm. Objective: Vital Signs Temp Pulse Resp BP Pulse Ox 37.2 C 70 18 119/59 L 94 04/14/17 08:00 04/14/17 08:00 04/14/17 08:00 04/14/17 08:00 04/14/17 08:00 Microbiology 04/12/17 07:26 Gram Stain - Final Other - Eswab Laboratory Results 04/13/17 07:06 04/14/17 03:44 04/13/17 04/14/17 04/15/17 05:59 05:59 05:59 Intake Total 1250 2745 Output Total 2300 2810 Balance -1050 -65 C-Reactive Protein 71.3 mg/L (<10.0) H 04/13/17 07:06 - Physical Exam General Appearance: alert, no apparent distress Respiratory: lungs clear Cardiac/Chest: regular rate, rhythm, other (midline incision with wound vac in place. very tender to minimal touch) Extremities: No swelling Abdomen: normal bowel sounds, non-tender, soft, No distended Skin: erythema (mild around upper mary wound vac region) ICD10 Worksheet Patient Problems: Problems Problem Status Onset Acute blood loss anemia Acute CAD, multiple vessel Acute Postoperative atrial fibrillation Acute S/P CABG x 3 Acute ~03/09/17 Alcohol abuse Chronic Current every day smoker Chronic SELENE on CPAP Chronic Type 2 diabetes mellitus Chronic
[2017-04-14] MEDS ORDERED: LR 1,000 ML IV ONE (13:18)
[2017-04-14] MEDS ORDERED: MIDAZOLAM 2 MG/2 ML VIAL IVP ONE (13:42)
--- NOTE | 2017-04-14 13:42 | PDANEPAE ---
ANE History of Present Illness Sternal debridement and closure ANE Past Medical History - Cardiovascular History Hx Hypertension: Yes Hx Arrhythmias: No Hx Chest Pain: Yes Hx Coronary Artery / Peripheral Vascular Disease: Yes Hx CHF / Valvular Disease: No Hx Palpitations: No Cardiovascular History Comment: heart murmur - Pulmonary History Hx COPD: Yes Hx Asthma/Reactive Airway Disease: Yes Hx Recent Upper Respiratory Infection: No Hx Oxygen in Use at Home: Yes O2 in Use at Home (L/minute): 2 Hx Sleep Apnea: Yes Sleep Apnea Screening Result - Last Documented: Positive Pulmonary History Comment: smoking since 4 yrs old, currently smokes 1,1/2 packs a day - Neurologic History Hx Cerebrovascular Accident: No Hx Seizures: No Hx Dementia: No - Endocrine History Hx Diabetes: Yes Obesity: mild Endocrine History Comment: type 2 - Renal History Hx Renal Disorders: No - Liver History Hx Hepatic Disorders: No - Neurological & Psychiatric Hx Hx Neurological and Psychiatric Disorders: Yes Neurological / Psychiatric History Comment: anxiety and deppression. hx of suicidal ideation with attempt. 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 - Cancer History Hx Cancer: No - Congenital Disorder History Hx Congenital Disorders: No - GI History GERD: mild Hx Gastrointestinal Disorders: No - Other Health History Other Health History: two ruptured disc's in lower back - Chronic Pain History Chronic Pain: No - Surgical History Prior Surgeries: none ANE Review of Systems Review of Systems: - Exercise capacity METS (RN): 3 METS ANE Patient History - Allergies Allergies/Adverse Reactions: oxycodone [From Percodan] Allergy (Severe, Verified 03/12/17 16:17) Other-Enter Comments - Home Medications Home medications: home medication list seen and reviewed Home Medications: Albuterol [Proventil Inhaler HFA (*)] 2 puffs IH Q6HRS PRN 03/03/17 [Last Taken 03/08/17] Aspirin [Aspirin 81mg (*)] 81 mg PO DAILY 03/03/17 [Last Taken 04/11/17] Citalopram [CeleXA 20 MG] 20 mg PO DAILY 03/03/17 [Last Taken 04/11/17] Fluticasone/Salmeter 250/50Mcg [Advair 250/50 (*)] 1 puffs IH BID 03/03/17 [ Last Taken 04/11/17] Metoprolol Succinate Xr [Toprol Xl 100 mg (*)] 200 mg PO DAILY 03/03/17 [Last Taken 04/11/17] Zolpidem Tartrate [Ambien 5MG (*)] 10 mg PO HS PRN 03/03/17 [Last Taken 03/08/17 ] glyBURIDE [Glyburide] 5 mg PO BIDMEAL 03/03/17 [Last Taken 04/11/17] metFORMIN HCL [Glucophage 1000 mg] 1,000 mg PO BIDMEAL 03/03/17 [Last Taken 04/26] - NPO status NPO Status: no food or drink >8 hours NPO Since - Liquids (Date): 04/14/17 NPO Since - Liquids (Time): 06:00 NPO Since - Solids (Date): 04/13/17 NPO Since - Solids (Time): 22:00 - Anes Hx Anes Hx: no prior problems - Smoking Hx Smoking Status: Former smoker - Alcohol Use Alcohol Use: Heavy - Family Anes Hx Family Anes Hx: none Family Hx Anesthesia Complications: none ANE Labs/Vital Signs - Labs Result Diagrams: 04/13/17 07:06 04/14/17 03:44 - Vital Signs Blood Pressure: 112/62 Heart Rate: 75 Respiratory Rate: 18 O2 Sat (%): 96 Height: 180.34 cm Weight: 109 kg ANE Physical Exam - Airway Neck exam: decreased ROM Mallampati Score: Class 2 - Pulmonary Pulmonary: no respiratory distress - Cardiovascular Cardiovascular: regular rate and rhythym - ASA Status ASA Status: III ANE Anesthesia Plan Anesthesia Plan: general endotracheal anesthesia (Vancomycin will be started 2 hours early.. Discussion with pharmacy )
[2017-04-14] MEDS ORDERED: MIDAZOLAM 2 MG/2 ML VIAL ONE (13:43)
[2017-04-14] MEDS ORDERED: fentaNYL 250 MCG/5 ML INJ ONE (13:52)
[2017-04-14] MEDS ORDERED: PROPOFOL/EMULSION 500 MG/50 ML BOTTLE IV ONE (13:52)
[2017-04-14] MEDS ORDERED: LIDO/EPI 1% **for epidural** 30 ML SDV ONE (14:05)
[2017-04-14] MEDS ORDERED: BACITRACIN ZINC 14.2 GM OINTTUBE TP ONE (15:08)
[2017-04-14] MEDS ORDERED: SUCCINYLCHOLINE CHLORIDE 200 MG/10 ML SYR IVP ONE (15:13)
[2017-04-14] MEDS ORDERED: NEOSTIGMINE METHYLSULFATE 3 MG/3 ML SYR ONE (15:13)
[2017-04-14] MEDS ORDERED: GLYCOPYRROLATE 0.2 MG/1 ML VIAL ONE ×3 (15:13)
[2017-04-14] MEDS ORDERED: ONDANSETRON 4 MG/2 ML VIAL ONE (15:13)
[2017-04-14] MEDS ORDERED: ROCURONIUM 50 MG/5 ML VIAL ONE (15:13)
[2017-04-14] MEDS ORDERED: NALOXONE HCL 0.4 MG/ML INJ IVP PRN (15:34)
[2017-04-14] MEDS ORDERED: HYDROmorphONE/DILAUDID 1 MG/ML INJ IVP PRN (15:34)
[2017-04-14] MEDS ORDERED: ONDANSETRON 4 MG/2 ML VIAL IVP PRN (15:34)
[2017-04-14] MEDS ORDERED: LABETALOL HCL 5 MG/ML 20 ML MDV IVP PRN (15:34)
--- NOTE | 2017-04-14 15:36 | POSTANESTH ---
Post Anesthetic Evaluation Cardiovascular Status: Similar to Pre-Op Cond Respiratory Status: Similar to Pre-op Cond. Level of Consciousness/Mental Status: Can Participate in Eval Pain Control: Adequate, Prn Tx Ordered Nausea/Vomiting Control: Adequate, Prn Tx Ordered Complications Possibly Related to Anesthesia: None Noted
[2017-04-14] MEDS ORDERED: HYDROCODONE/APAP 5/325 TAB ONE (15:59)
--- NOTE | 2017-04-14 16:19 | GOP ---
[f rep st] OPERATIVE REPORT DATE OF OPERATION: 04/14/2017 SURGEON: Daxa Gatica Jr., MD STITCH WELDER: None. ANESTHESIA: General inhalational anesthetic. ANESTHESIOLOGIST: Yumiko Brown MD. PREOPERATIVE DIAGNOSIS: Open infected sternal wound, 5 weeks status post 3-vessel coronary artery by pass graft. POSTOPERATIVE DIAGNOSIS: Open infected sternal wound, 5 weeks status post 3-vessel coronary artery b ypass graft. PROCEDURE PERFORMED: 1. Sternal debridement with debridement of skin, subcutaneous tissue, and bone. 2. Left pectoralis major muscle turnover flap. 3. Bilateral chest wall advancement flaps for defect approximately 75 sq cm. FINDINGS: SPECIMENS: Intraoperative cultures taken. ESTIMATED BLOOD LOSS: 150 cc. INDICATIONS: Patient is a 56-year-old white male whom underwent an emergent CABG approximately 5-6 w eeks ago. He developed a sternal wound infection requiring debridement several days ago by Dr. Kovacs . I was consulted to assist in wound management. We discussed the risks benefits of operative closu re versus delayed secondary healing with a wound VAC. He understood that he is a very high-risk chloe ent given his multiple comorbidities, but elected to proceed with this operation. I felt that this w as the right decision, and we came to the operating room today for debridement and closure. DESCRIPTION OF PROCEDURE: After risks and benefits of procedure were explained to the patient, highl ighting bleeding, infection, loss of function, recurrent wound breakdown, recurrent infection, damage to underlying intrathoracic structures, poor wound healing, visible or hypertrophic scarring, and ne ed for revisional procedures, formal operative consent was obtained. He was taken to the operating r oom after adequate inhalational general anesthesia was provided by Dr. Yumiko Brown. He was prepped a nd draped in normal sterile fashion. Procedure began by injecting the periphery of the wound edge wh ich presented as a 25 x 5 cm midline defect with 1% lidocaine containing adrenaline. Approximately 2 0 cc was utilized in the subcutaneous space. The skin edges around the entire wound with all exposed colonized bone, muscle, fat, and skin were excised. Sternum was debrided, and good healthy tissue w as appreciated. All previous sutures were removed that were visible. I designed a left turnover fla p based on intercostal perforators after vascularity of the muscle flap was assured, and the thoracoa cromial pedicle was kept intact as the left internal mammary artery had been previously harvested for coronary bypass grafting. The muscle was freed up its entire insertion to allow the muscle to fold into the sternal defect. Again, vascularity of both the perforators as well as the thoracoacromial w ere preserved. The flap was inset after the area was irrigated using 2-0 Vicryl suture. The chest w all, skin, and subcutaneous flaps were elevated to allow closure over the muscle flap. The defect wa s approximately 75 sq cm. After complete release and elevation of the soft tissue, 2 SANAM drains were placed. One was placed in the substernal space below the muscle flap. One was placed along the righ t chest wall margin lateral border. The pocket was irrigated a final time with normal saline. Metic ulous hemostasis was assured. The chest wall advancement flaps were then sutured using the superfici al fascia in the midline using interrupted 2-0 Vicryl suture. Skin edges reapproximated using everti ng deep dermal 3-0 Monocryl suture, and further eversion was carried out with surgical sujata. The drains were placed to bulb suction. He was extubated in the operating room after light sterile dress ings were applied, taken to recovery room awake in stable condition. COMPLICATIONS: None. DRAINS: 2 SANAM drains placed. /[id number]/MODL
[2017-04-14] MEDS: fentaNYL 100 MCG/2 ML INJ IVP PRN ×2 (16:20→16:29)
[2017-04-14] MEDS ORDERED: fentaNYL 100 MCG/2 ML INJ ONE (16:20)
[2017-04-15] MEDS: HYDROCODONE/APAP 5/325 TAB PO PRN ×4 (04:52→18:19)
[2017-04-15] MEDS: LACTULOSE 20 GM/30 ML UDCUP PO PRN (04:52)
[2017-04-15 06:59] LABS: CREATINE KINASE 281 IU/L (0-224)
[2017-04-15] MEDS: APIXABAN 5 MG TAB PO SCH ×2 (08:27→20:04)
[2017-04-15] MEDS: ATORVASTATIN CALCIUM 40 MG TAB PO SCH (08:27)
[2017-04-15] MEDS: SENNOSIDES/DOCUSATE SODIUM TAB PO SCH ×2 (08:27→20:04)
[2017-04-15] MEDS: CITALOPRAM 20 MG TAB PO SCH (08:27)
[2017-04-15] MEDS: NICOTINE 21 MG/24 HR PATCH TD SCH (08:27)
[2017-04-15] MEDS: ASPIRIN 81 MG CHEWABLE TAB PO SCH (08:27)
[2017-04-15] MEDS: METOPROLOL SUCCINATE XR 100 MG TAB PO SCH (08:28)
[2017-04-15] MEDS: metFORMIN HCL 500 MG TAB PO SCH ×2 (08:28→17:19)
[2017-04-15] MEDS: glyBURIDE 5 MG TAB PO SCH ×2 (08:28→17:19)
[2017-04-15] MEDS: VODKA 50 ML BOTTLE PO SCH ×7 (08:29→20:04)
[2017-04-15] MEDS: VANCOMYCIN 1.25 GM in NS 250 ML IV SCH ×2 (08:46→16:44)
[2017-04-15] MEDS: FLUTICASONE/SALMETER 250/50MCG DISKUS IH SCH ×2 (10:08→21:41)
--- NOTE | 2017-04-15 13:34 | PCMIDPN ---
Assessment/Plan: Assessment/Plan: 1. Post operative sternal wound infection with likely osteomyelitis: - Cellulitis involving upper portion of sternal incision site when presented to [facility]. - s/p removal of wires, debridement-04/12/17 - s/p debridment of soft tissue and bone with flap closure 04/14/17. sternum still . - Cultures with ngtd. OPerative cx from 04/14/17 pending. Will continue to follow -In discussion with Dr. Kovacs, thick serous, milky fluid down to sternal but not below. Operative note pending. -On Vanco. trough 13.3 -Likely change to Dapto . He is on a statin so this will need to be held. Discussed with Dr. Kovacs. ok to stop statin. - Creatinine stable. Continue to monitor labs while on treatment -Plan of care reviewed with patient - care coordinated with case management. - care coordinated with Dr. Kovacs. -will work on interagency. Meds vanco 1.25gm q8- Subjective: afebrile. has tenderness around wound. denies sob, abd pain, diarrhea. Objective: Vital Signs Temp Pulse Resp BP Pulse Ox 37.2 C 80 14 99/56 L 94 04/15/17 11:55 04/15/17 11:55 04/15/17 11:55 04/15/17 11:55 04/15/17 11:55 Microbiology 04/12/17 07:26 Gram Stain - Final Other - Eswab 04/14/17 14:20 Gram Stain - Final Chest - Eswab 04/14/17 14:20 Gram Stain - Final Chest - Eswab Laboratory Results 04/13/17 07:06 04/15/17 06:30 04/14/17 04/15/17 04/16/17 05:59 05:59 05:59 Intake Total 2745 1475 Output Total 5470 1710 70 Balance -65 -235 -70 C-Reactive Protein 71.3 mg/L (<10.0) H 04/13/17 07:06 - Physical Exam General Appearance: alert, no apparent distress Respiratory: lungs clear Cardiac/Chest: regular rate, rhythm Extremities: other (no swelling) Abdomen: non-tender, soft Skin: other (midline chest wound with sujata noted. ) ICD10 Worksheet Patient Problems: Problems Problem Status Onset Acute blood loss anemia Acute CAD, multiple vessel Acute Postoperative atrial fibrillation Acute S/P CABG x 3 Acute ~03/09/17 Alcohol abuse Chronic Current every day smoker Chronic SELENE on CPAP Chronic Type 2 diabetes mellitus Chronic
--- NOTE | 2017-04-15 16:02 | PDIAF ---
- Diagnosis Diagnosis: Sternal wound infection, possible osteomyelitis Code Status: Full Code - Medication Management Discharge Medications: Medications to Continue on Transfer Albuterol [Proventil Inhaler HFA (*)] 2 puffs IH Q6HRS PRN 03/03/17 [Last Taken 03/08/17] Aspirin [Aspirin 81mg (*)] 81 mg PO DAILY 03/03/17 [Last Taken 04/11/17] Citalopram [CeleXA 20 MG] 20 mg PO DAILY 03/03/17 [Last Taken 04/11/17] Fluticasone/Salmeter 250/50Mcg [Advair 250/50 (*)] 1 puffs IH BID 03/03/17 [ Last Taken 04/11/17] Metoprolol Succinate Xr [Toprol Xl 100 mg (*)] 200 mg PO DAILY 03/03/17 [Last Taken 04/11/17] Zolpidem Tartrate [Ambien 5MG (*)] 10 mg PO HS PRN 03/03/17 [Last Taken 03/08/17 ] glyBURIDE [Glyburide] 5 mg PO BIDMEAL 03/03/17 [Last Taken 04/11/17] metFORMIN HCL [Glucophage 1000 mg] 1,000 mg PO BIDMEAL 03/03/17 [Last Taken 04/26] Acetaminophen [Tylenol 325mg (*)] 325 - 650 mg PO Q4HRS PRN tab 03/15/17 [Last Taken Unknown] Amiodarone HCl [Pacerone (*)] 200 mg PO BID #30 tab 03/15/17 [Last Taken ] Apixaban [Eliquis] 5 mg PO BID #60 tab 03/15/17 [Last Taken 04/11/17] Furosemide [Lasix 20 MG (*)] 20 mg PO DAILY #30 tab 03/15/17 [Last Taken ] Lisinopril [Zestril 5 mg (*)] 5 mg PO DAILY #30 tab 03/15/17 [Last Taken ] Nicotine [Nicoderm Cq 21 mg (*)] 21 mg TD DAILY #14 patch 03/15/17 [Last Taken 04/10/17] Nursing Home Antibiotics: Daptomycin 660mg daily Nursing Home Antibiotic Stop Date: 05/27/17 Discharge Medications: Refer to the Discharge Home Medication list for PRN reason. PICC Care - Routine: Yes - Labs/Radiology CBC w/diff Date: 04/20/17 (q mondays) CMP Date: 04/20/17 (q mondays) CRP Date: 04/20/17 (q mondays) CPK Date: 04/20/17 (q mondays) Call or Fax Lab and Imaging Results to: Dr. Kim- [phone] - Follow Up Care Current Providers and Referrals: Patient,NotPresent [Primary Care Provider] - Esther Kim MD [Medical Doctor] - 04/22/17 9:30 am (Dr. Kim (Infectious Diseases ) at 9:30am. Check in time: 9:10am. )
[2017-04-15] MEDS ORDERED: ALTEPLASE 2 MG VIAL IVP PRN (16:03)
--- NOTE | 2017-04-15 16:23 | ASMTCMCOM ---
CM Note CM Note Notes: CM spoke w/ Dr. Kim, Dr. Kovacs and JOANA Clifford regarding d/c POC. Dr. Kim reports that pt will need 6 weeks of dapo ivabx. Pt will have a PICC line placed at some point. Anticipates d/c for tomorrow. CM met w/ pt for dispo planning. Pt is agreeable to referral to [facility]. Referral sent out to facilties in [place]. CM to follow. Plan: IVabx with DESIREE CISNEROS Date Signed: 04/15/2017 04:22 PM Electronically Signed By:MARCELO Gutierrez
[2017-04-15] MEDS ORDERED: SODIUM CL 0.9% IV SCH (17:00)
[2017-04-15] MEDS ORDERED: DAPTOMYCIN IV SCH ×2 (17:00)
[2017-04-15] MEDS ORDERED: NS IV SCH (17:00)
[2017-04-15] MEDS: POLYETHYLENE GLYCOL 3350 17 GM PKT PO PRN (20:04)
[2017-04-16] MEDS: HYDROCODONE/APAP 5/325 TAB PO PRN ×4 (00:36→13:20)
[2017-04-16] MEDS: LACTULOSE 20 GM/30 ML UDCUP PO PRN (03:23)
[2017-04-16 04:58] LABS: PLATELET COUNT 225 10^3/uL (150-400)
[2017-04-16] MEDS: VODKA 50 ML BOTTLE PO SCH ×2 (05:16→11:50)
[2017-04-16] MEDS: metFORMIN HCL 500 MG TAB PO SCH (08:29)
[2017-04-16] MEDS: METOPROLOL SUCCINATE XR 100 MG TAB PO SCH (08:29)
[2017-04-16] MEDS: glyBURIDE 5 MG TAB PO SCH (08:29)
[2017-04-16] MEDS: CITALOPRAM 20 MG TAB PO SCH (08:30)
[2017-04-16] MEDS: APIXABAN 5 MG TAB PO SCH (08:30)
[2017-04-16] MEDS: SENNOSIDES/DOCUSATE SODIUM TAB PO SCH (08:30)
[2017-04-16] MEDS: ASPIRIN 81 MG CHEWABLE TAB PO SCH (08:30)
[2017-04-16] MEDS: NICOTINE 21 MG/24 HR PATCH TD SCH (08:31)
[2017-04-16] MEDS: FLUTICASONE/SALMETER 250/50MCG DISKUS IH SCH (09:24)
--- NOTE | 2017-04-16 11:23 | PDIAF ---
- Diagnosis Diagnosis: Sternal wound infection, possible osteomyelitis s/p debridement & pec flap Code Status: Full Code - Medication Management Discharge Medications: Medications to Continue on Transfer Albuterol [Proventil Inhaler HFA (*)] 2 puffs IH Q6HRS PRN 03/03/17 [Last Taken 03/08/17] Aspirin [Aspirin 81mg (*)] 81 mg PO DAILY 03/03/17 [Last Taken 04/11/17] Citalopram [CeleXA 20 MG] 20 mg PO DAILY 03/03/17 [Last Taken 04/11/17] Fluticasone/Salmeter 250/50Mcg [Advair 250/50 (*)] 1 puffs IH BID 03/03/17 [ Last Taken 04/11/17] Metoprolol Succinate Xr [Toprol Xl 100 mg (*)] 200 mg PO DAILY 03/03/17 [Last Taken 04/11/17] Zolpidem Tartrate [Ambien 5MG (*)] 10 mg PO HS PRN 03/03/17 [Last Taken 03/08/17 ] glyBURIDE [Glyburide] 5 mg PO BIDMEAL 03/03/17 [Last Taken 04/11/17] metFORMIN HCL [Glucophage 1000 mg] 1,000 mg PO BIDMEAL 03/03/17 [Last Taken 04/26] Acetaminophen [Tylenol 325mg (*)] 325 - 650 mg PO Q4HRS PRN tab 03/15/17 [Last Taken Unknown] Furosemide [Lasix 20 MG (*)] 20 mg PO DAILY #30 tab 03/15/17 [Last Taken ] Nicotine [Nicoderm Cq 21 mg (*)] 21 mg TD DAILY #14 patch 03/15/17 [Last Taken 04/10/17] Alteplase [Cathflo Activase 2 mg (*)] 2 mg IVP PRN PRN vial 04/16/17 [Last Taken Unknown] Apixaban [Eliquis] 5 mg PO BID #60 tab 04/16/17 [Last Taken 04/11/17] DAPTOmycin [Cubicin] 660 mg IV DAILY@1700 ml 04/16/17 [Last Taken Unknown] Hydrocodone/APAP 5/325 [[place] 5/325 (*)] 1 - 2 tab PO Q6H PRN #30 tab 04/16/17 [ Last Taken Unknown] Sodium Cl 0.9% 10 ml IV DAILY@1700 vial 04/16/17 [Last Taken Unknown] Sock [employer]er Antibiotics: Daptomycin 660mg daily S[employer] Antibiotic Stop Date: 05/27/17 Discharge Medications: Refer to the Discharge Home Medication list for PRN reason. PICC Care - Routine: Yes - Orders Services needed: Registered Nurse (cardiorespiratory, wound and PICC care) Isolation Type: None Diet Recommendation: cardiac -low fat low salt Diet Texture: Regular Texture Diet Petersen: Not applicable Wound Care Instructions: as per plastic surgeon Dr Gatica Sutures/Les Site: chest, staple removal per Dr Gatica Activity/Weight Bearing Restrictions: as per plastic surgery - Labs/Radiology CBC w/diff Date: 04/20/17 (q mondays) CMP Date: 04/20/17 (q mondays) CRP Date: 04/20/17 (q mondays) CPK Date: 04/20/17 (q mondays) Call or Fax Lab and Imaging Results to: Dr. Kim- [phone] - Follow Up Care Current Providers and Referrals: Patient,NotPresent [Primary Care Provider] - Esther Kim MD [Medical Doctor] - 04/22/17 9:30 am (Dr. Kim (Infectious Diseases ) at 9:30am. Check in time: 9:10am. ) Naif Gatica JR, MD [Medical Doctor] - 3-5 days
[2017-04-16 12:29] VITALS: BP 115/64; PULSE 76; RESP 18; TEMP 97.6; O2SAT 90
--- NOTE | 2017-04-16 12:33 | ASMTLACE ---
LACE Length of stay for Answers: 4-6 days current admission Acuity / Level of Answers: Yes Care: Did the patient have an inpatient admission? Comorbidities - select Answers: Chronic pulmonary disease all that apply Coronary Atery Disease Diabetes (uncontrolled or controlled) Other Notes: HTN, HLD # of Emergency department Answers: 0 visits in the last 6 months Social determinants Answers: History of substance abuse (ETOH, street drugs, prescription drugs, etc.) Lack of community resources and/or lack of social support (no pcp, lives alone, transportation, jamshid d) Score: 20 Date Signed: 04/16/2017 12:33 PM Electronically Signed By:Le Larkin RN
--- NOTE | 2017-04-16 12:53 | PDDCSUM ---
Discharge Summary Discharge Summary: DATE OF ADMISSION: 04/12/17 DATE OF DISCHARGE: 04/16/17 DISPOSITION: Home with home health RN PRINCIPAL ADMISSION DIAGNOSIS: Postoperative sternal dehiscence PRINCIPAL DISCHARGE DIAGNOSES: Sternal wound infection with possible osteomyelitis HISTORY OF PRESENT ILLNESS: 56 yo obese diabetic male with a popping sensation in his 1 month old sternotomy after rotational movement reaching for something behind him. Subsequent few days followed by sternal popping and clicking with increasing upper incisional tenderness, redness and swelling. Evaluated at [facility] where seen by CT scan to have disruption of his sternotomy and transferred to [facility] for wound debridement and further care. PERTINENT PAST MEDICAL HISTORY: 1. CABG3 (FINN-LAD, SV-D2, SV-RCA), AtriClip ligation left atrial appendage, prophylactic Robicsek sternal closure on 03/09/17, Dr Kovacs, [facility]. 2. Postoperative PAF and anemia. 3. Longstanding: HTN, hyperlipidemia, Type 2 diabetes, tobacco abuse, probable COPD, alcohol abuse, SELENE on CPAP, obesity, depression MEDICATIONS ON ADMISSION: Nicotine patch 21 mg TD daily, Atorvastatin 40 mg daily, ASA 81 mg daily, Eliquis 5 mg BID, Amiodarone 200 mg daily, Toprol XL 200 mg daily, Lasix 20 mg daily, Lisinopril 5 mg daily, Metformin 1,000 mg BID, Glyburide 5 mg BID, Celexa 20 mg daily, Advair 250/50 one puff IH BID, Ambien 10 mg HS prn, Albuterol MDI 2 puffs IH q 6hrs prn ALLERGIES/SENSITIVITIES: Percodan causing hallucinations CONSULTANTS: Plastic surgery (En), Infectious disease (Julio) PROCEDURES/IMAGIN/4 (Fermín): Debridement of sternal wound with removal of all hardware and placement of wound vac. 04/14 (En): Debridement of sternal soft tissue and bone. Left pectoralis major muscle turnover flap. Bilateral chest wall advancement flaps. 04/15 (Viraj): Placement of RUE PICC under ultrasonic and fluoroscopic guidance. ABBREVIATED HOSPITAL COURSE BY ACTIVE PROBLEM LIST: 1. Sternal wound infection - Assoc with broken hardware, fractured bone, and midline diastasis. No pepito purulence. Late growth of P. acnes on initial intraop culture. No growth by preliminary plastics cultures. IV antibiotics x 6 wks per ID. 2. CAD - s/p recent CABG. Secondary prevention with ASA and BB. Statin held while on Daptomycin. 3. Hx postoperative PAF - No dysrhythmias during this hospitalization. Amiodarone formally stopped. Antithrombotic prophylaxis with Eliquis x 1 month. 4. ETOH/tobacco abuse - Willing to cut back on drinking once no longer struggling with smoking cessation. Titration of nicotine patch per PCP. DISCHARGE CLINICAL INFORMATION: Sternal dressing CDI. JPs x 2 to bulb suction. HR 70s-80s. SBP 110s. SpO2 90% RA. WBC 7.6, Hgb 9, HCT 27, Plt 225, Na 134, K 5.2, Cr 0.6, CRP 71, AST 15, ALT 42 DISCHARGE MEDICATIONS: As on admission with the following adjustments: 1. Hold Lisinopril 2. Stop Amiodarone 3. Hold Lipitor while on Daptomycin 4. Stop Eliquis once out of pills from previous prescription NEW prescriptions: 1. Daptomycin 660 mg IV daily 2. [place] 5/325 one to two tabs q6h prn pain FOLLOW UP APPOINTMENTS: 1. Plastic surgery: with Dr Gatica within 3-5 days for wound and drain check. 2. Infectious Diseases: with Dr Kim on 04/22 at 9:30 am. 3. Cardiology: with Dr Yancey at [facility] within 1-2 weeks. Call for appointment time. FOLLOW UP TESTING: CBC, CMP, CRP, CPK q Thursday. Results to Dr Kim.
[2017-04-16] MEDS ORDERED: SODIUM CL 0.9% IV SCH (15:00)
[2017-04-16] MEDS ORDERED: DAPTOMYCIN IV SCH (15:00)
--- NOTE | 2017-04-17 17:33 | ASDISCHSUM ---
Discharge Information Plan Status:Home with Home Health Medically Cleared to Leave: Discharge Date:04/16/2017 02:52 PM CM D/C Disposition:Home Health Service ADT D/C Disposition:[id number] Projected Discharge Date:04/16/2017 11:00 AM Transportation at D/C:Friend Discharge Delay Reason: Follow-Up Date:04/16/2017 11:00 AM Discharge Slot: Final Diagnosis:Sternal wound infection S/P CABG x 2 Placement Information Referral Type:Home Infusion Referral ID:[id number] Provider Name:[facility] Address 1:[address] Address 2: City:[place] Selection Factors: State:[place] Referral Type:*Home Health Care Services Referral ID:[id number] Provider Name:[facility] Address 1:[address] Address 2: City:[place] Selection Factors: State:[place] Patient Contact Information Contact Name:NITIN Relationship:Friend Address:[address] [employer] [facility] Work Phone: City:[facility] Phone: [facility]/Zip Code:[place] [address] Email: Financial Information Financial Class:Medicaid Primary Plan Desc:MEDICAID HEALTH [facility] IP Primary Plan Number:[id number] Secondary Plan Desc: Secondary Plan Number: Assessment Information LACE LACE Length of stay for Answers: 4-6 days current admission Acuity / Level of Answers: Yes Care: Did the patient have an inpatient admission? Comorbidities - select Answers: Chronic pulmonary disease all that apply Coronary Atery Disease Diabetes (uncontrolled or controlled) Other Notes: HTN, HLD # of Emergency department Answers: 0 visits in the last 6 months Social determinants Answers: History of substance abuse (ETOH, street drugs, prescription drugs, etc.) Lack of community resources and/or lack of social support (no pcp, lives alone, transportation, jamshid d) Score: 20 Date Signed: 04/16/2017 12:33 PM Electronically Signed By:Le Larkin RN [facility] CM Progress Note CM Note CM Note Notes: 56 yr old male admitted S/P CABG x 2 for a sternal wound infection. He has a hx of ETOH, Smoking, Obesity, COPD, DM, HTN, HLD, SELENE. ID consulting-IV ABX. Therapies to eval, CM to follow for discharge needs. Date Signed: 04/12/2017 03:50 PM Electronically Signed By:Perla Duke LCSW [facility] CM Progress Note CM Note CM Note Notes: POD #1 debridement of sternal wound and wound vac placement. Not clear when pt will go back to surg for wound closure; he will have plastics consult per progress note. DC needs not clear at this time. Pt lives at home alone. He was seen by PT today and they are recommending out pt cardiac rehab. CM will follow. Date Signed: 04/13/2017 01:43 PM Electronically Signed By:Lore Lang RN [facility] CM Progress Note CM Note CM Note Notes: CM spoke w/ Dr. Kim, Dr. Kovacs and JOANA Clifford regarding d/c POC. Dr. Kim reports that pt will need 6 weeks of dapo ivabx. Pt will have a PICC line placed at some point. Anticipates d/c for tomorrow. CM met w/ pt for dispo planning. Pt is agreeable to referral to [facility]. Referral sent out to facilties in [place]. CM to follow. Plan: IVabx with AMELIA RN Date Signed: 04/15/2017 04:22 PM Electronically Signed By:MARCELO Gutierrez Case Management Discharge Plan Note Case Management Discharge Discharge Order Complete? Answers: Yes Patient to Obtain Answers: [facility] Transportation Arranged Answers: Family/Friends Faxed Final Orders Answers: Yes Agency/Facility Transfer Answers: Yes Report Printed & Faxed to Receiving Agency Discharge Comments Notes: D/w , final orders faxed. Sushma at [facility] and Nikkie at [facility] roselia, DESIREE to call report. Date Signed: 04/16/2017 12:31 PM Electronically Signed By:Le Larkin RN Intervention Information
== END 2017-04-16 14:52 | disposition home health service (06) | DRG 857 ==
LOC: F2N 05:22 → F2W 09:00 → F3E 04-15 17:54
PROVIDERS: ADMIT Thoracic Surgery (Cardiothoracic Vascular Surgery); ATTEND Thoracic Surgery (Cardiothoracic Vascular Surgery)
PROC: 0JX60ZC Transfer Chest Subcutaneous Tissue and Fascia with Skin, Subcutaneous Tissue and Fascia, Open Approach (ICD-10-PCS; principal; 2017-04-12 06:30)
PROC: 0PB00ZZ Excision of Sternum, Open Approach (ICD-10-PCS; principal; 2017-04-12 06:30)
DX: T81.4XXA Infection following a procedure, initial encounter (principal); M86.9 Osteomyelitis, unspecified; T81.32XA Disruption of internal operation (surgical) wound, not elsewhere classified, initial encounter; E66.01 Morbid (severe) obesity due to excess calories; I10 Essential (primary) hypertension; E11.9 Type 2 diabetes mellitus without complications; I25.10 Atherosclerotic heart disease of native coronary artery without angina pectoris; I48.0 Paroxysmal atrial fibrillation; F10.20 Alcohol dependence, uncomplicated; G47.33 Obstructive sleep apnea (adult) (pediatric); F32.9 Major depressive disorder, single episode, unspecified; J44.9 Chronic obstructive pulmonary disease, unspecified; E78.5 Hyperlipidemia, unspecified; D64.9 Anemia, unspecified; Z95.1 Presence of aortocoronary bypass graft; Z79.01 Long term (current) use of anticoagulants; Z72.0 Tobacco use
CPT/HCPCS: 97161-GP; C1751; J0330; J0878; J2250; J2405; J2704; J2710; J3010; J3370

== ENCOUNTER 2017-05-05 13:53 | Observation (INO) | payer MEDICAID ==
[2017-05-05] MEDS ORDERED: BACITRACIN ZINC 0.5 OZ OINTTUBE TP ONE (13:59)
[2017-05-05] MEDS ORDERED: LIDOCAINE 1% 300 MG/30 ML SDV ONE (14:00)
[2017-05-05] MEDS ORDERED: BUPIVACAINE 0.25% 30 ML SDV ONE (14:00)
[2017-05-05] MEDS ORDERED: EPINEPHrine 1 MG/ML INJ ONE (14:00)
[2017-05-05] MEDS ORDERED: LIDOCAINE 1% 2 ML INJ ID PRN (14:21)
[2017-05-05] MEDS: LR 1,000 ML IV SCH (14:46)
--- NOTE | 2017-05-05 15:08 | PDHPUP ---
History & Physical Update H&P update statement: This history and physical update is based on an assessment of the patient which was completed after admission or registration (within 24 hours), but prior to the surgery/procedure. H&P update: no change in patient's condition since H&P completed, changes noted H&P changes: Galindo has developed recurrent upper sternal incision erythema requiring exploration and debridement
[2017-05-05 15:12] LABS: PLATELET COUNT 232 10^3/uL (150-400)
[2017-05-05] MEDS ORDERED: MIDAZOLAM 2 MG/2 ML VIAL IVP ONE (15:25)
--- NOTE | 2017-05-05 15:25 | PDANEPAE ---
ANE History of Present Illness Patient presents for Sternal debridement ANE Past Medical History - Cardiovascular History Hx Hypertension: Yes Hx Arrhythmias: No Hx Chest Pain: Yes Hx Coronary Artery / Peripheral Vascular Disease: Yes Hx CHF / Valvular Disease: No Hx Palpitations: No Cardiovascular History Comment: heart murmur - Pulmonary History Hx COPD: Yes Hx Asthma/Reactive Airway Disease: Yes Hx Recent Upper Respiratory Infection: No Hx Oxygen in Use at Home: Yes Hx Sleep Apnea: Yes Sleep Apnea Screening Result - Last Documented: Positive Pulmonary History Comment: smoking since 4 yrs old, current smoker - Neurologic History Hx Cerebrovascular Accident: No Hx Seizures: No Hx Dementia: No - Endocrine History Hx Diabetes: Yes Endocrine History Comment: type 2 - Renal History Hx Renal Disorders: No - Liver History Hx Hepatic Disorders: No - Neurological & Psychiatric Hx Hx Neurological and Psychiatric Disorders: Yes Neurological / Psychiatric History Comment: anxiety and deppression. hx of suicidal ideation with attempt. 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 - Cancer History Hx Cancer: No - Congenital Disorder History Hx Congenital Disorders: No - GI History Hx Gastrointestinal Disorders: Yes Gastrointestinal History Comment: polyps removed - Other Health History Other Health History: two ruptured disc's in lower back - Chronic Pain History Chronic Pain: No - Surgical History Prior Surgeries: none ANE Review of Systems Review of Systems: - Exercise capacity METS (RN): 4 METS ANE Patient History - Allergies Allergies/Adverse Reactions: oxycodone Allergy (Unknown, Verified 05/04/17 14:57) Other-Enter Comments - Home Medications Home medications: home medication list seen and reviewed Home Medications: Albuterol [Proventil Inhaler HFA (*)] 03/03/17 [Last Taken 04/05/17] Aspirin [Aspirin 81mg (*)] 03/03/17 [Last Taken 05/03/17] Citalopram [CeleXA 20 MG] 03/03/17 [Last Taken 05/04/17] Fluticasone/Salmeter 250/50Mcg [Advair 250/50 (*)] 03/03/17 [Last Taken ] Metoprolol Succinate Xr [Toprol Xl 100 mg (*)] 03/03/17 [Last Taken 05/04/17] Zolpidem Tartrate [Ambien 5MG (*)] 03/03/17 [Last Taken 05/03/17] glyBURIDE [Glyburide] 03/03/17 [Last Taken 05/04/17] metFORMIN HCL [Glucophage 1000 mg] 03/03/17 [Last Taken 05/04/17] Acetaminophen [Tylenol 325mg (*)] 05/04/17 [Last Taken 04/28/17] Furosemide [Lasix 20 MG (*)] 05/04/17 [Last Taken 05/03/17] Hydrocodone/APAP 5/325 [[place] 5/325 (*)] 05/04/17 [Last Taken 05/05/17] - NPO status NPO Status: no food or drink >8 hours NPO Since - Liquids (Date): 05/05/17 NPO Since - Liquids (Time): 11:00 NPO Since - Solids (Date): 05/05/17 NPO Since - Solids (Time): 06:00 - Smoking Hx Smoking Status: Former smoker - Family Anes Hx Family Hx Anesthesia Complications: none ANE Labs/Vital Signs - Labs Result Diagrams: 05/05/17 14:20 - Vital Signs Blood Pressure: 140/83 Heart Rate: 93 Respiratory Rate: 14 O2 Sat (%): 94 Height: 180.34 cm Weight: 106.594 kg ANE Physical Exam - Airway Neck exam: FROM Mallampati Score: Class 2 - Pulmonary Pulmonary: no respiratory distress - Cardiovascular Cardiovascular: regular rate and rhythym - ASA Status ASA Status: III ANE Anesthesia Plan Anesthesia Plan: GA w LMA (rba discussed)
[2017-05-05] MEDS ORDERED: DEXAMETHASONE 4 MG/ML VIAL ONE (15:32)
[2017-05-05] MEDS ORDERED: PROPOFOL 200 MG/20 ML VIAL ONE (15:32)
[2017-05-05] MEDS ORDERED: fentaNYL 100 MCG/2 ML INJ ONE (15:32)
[2017-05-05] MEDS ORDERED: ONDANSETRON 4 MG/2 ML VIAL ONE (15:32)
[2017-05-05] MEDS ORDERED: ONDANSETRON DISINTEGRATING 4 MG TAB PO PRN (15:44)
[2017-05-05] MEDS ORDERED: D50W 25 GM/50 ML VIAL IVP PRN (15:44)
[2017-05-05] MEDS ORDERED: ONDANSETRON 4 MG/2 ML VIAL IVP PRN ×2 (15:44→16:55)
[2017-05-05] MEDS ORDERED: ACETAMINOPHEN 325 MG TAB PO PRN (15:44)
--- NOTE | 2017-05-05 16:39 | GOP ---
[f rep st] OPERATIVE REPORT DATE OF OPERATION: 05/05/2017 SURGEON: Daxa Gatica Jr., MD ONLINE CONTENT EDITOR: Ari Castellanos CSA by surgeon request. ANESTHESIA: General inhalational anesthetic. PREOPERATIVE DIAGNOSIS: Sternal wound infection status post coronary artery bypass graft, status pos t sternal debridement with pectoralis muscle reconstruction. POSTOPERATIVE DIAGNOSIS: Sternal wound infection status post coronary artery bypass graft, status po st sternal debridement with pectoralis muscle reconstruction. PROCEDURE PERFORMED: Sternal debridement with placement of wound VAC. FINDINGS: Tissue erythema without isolated pocket of purulence. ESTIMATED BLOOD LOSS: 5 cc. INDICATIONS: The patient is a 57-year-old white male with a very complicated medical history, who un derwent an emergent coronary artery bypass graft several months ago. He developed drainage from the wound site at the superior aspect of the incision approximately 6 weeks post CABG and was taken to [facility] operating room for sternal debridement and placement of a VAC. Several days later, I debrided him further and placed a left pectoralis muscle flap into the defect and achieved soft tissue closure. e did well and was sent home on IV antibiotics. Approximately 2 weeks status post surgery, he develo ped erythema and tenderness in the upper aspect of the incision. With his history, I elected to expl ore this area, and he was taken to the operating room for that purpose. DESCRIPTION OF PROCEDURE: After risks and benefits were explained to the patient highlighting bleedi ng, infection, damage to intrathoracic structures, recurrent infection, poor wound healing, formal op erative consent was obtained. He was seen in the operating room. After adequate inhalational genera l anesthesia was provided, the incision was injected with lidocaine containing adrenaline. He was pr epped and draped in normal sterile fashion. Procedure began by reopening the incision in the superio r portion of the sternum where the area of erythema and tenderness were noted. There was no fluctuan ce, and no underlying fluid collection was appreciated. The muscle was healthy and viable. It was p ink and was healing well in between the sternum. There was a section in this very superior portion o f the sternum that did not have muscle and communicated with the mediastinum. There was no drainage of any purulent fluid from this area. Given his history, I elected to place a VAC in the area, and a VAC was placed without complication into the superior portion of the wound. He was extubated in the operating room, taken to the recovery room awake and in stable condition. COMPLICATIONS: No complications. /[id number]/MODL
[2017-05-05] MEDS ORDERED: fentaNYL 100 MCG/2 ML INJ IVP PRN (16:55)
[2017-05-05] MEDS ORDERED: NALOXONE HCL 0.4 MG/ML INJ IVP PRN (16:55)
[2017-05-05] MEDS ORDERED: ALBUTEROL 3 ML DEYVIAL IH PRN (16:55)
[2017-05-05] MEDS ORDERED: LR 500 ML IV PRN (16:55)
[2017-05-05] MEDS ORDERED: INSULIN REGULAR HUMAN 100 UNIT/ML UNIT ONE (17:13)
[2017-05-05] MEDS ORDERED: INSULIN REGULAR HUMAN 100 UNIT/ML UNIT SC ONE (17:15)
[2017-05-05] MEDS ORDERED: valACYclovir 500 MG TAB PO PRN (17:31)
[2017-05-05] MEDS ORDERED: ZOLPIDEM TARTRATE 5 MG TAB PO PRN (19:18)
[2017-05-05] MEDS ORDERED: DAPTOMYCIN IV SCH (20:00)
[2017-05-05] MEDS ORDERED: NS IV SCH (20:00)
--- NOTE | 2017-05-05 20:15 | GHP ---
[f rep st] HISTORY AND PHYSICAL DATE OF ADMISSION: 05/05/2017 CHIEF COMPLAINT: Sternal incision postoperative infection. PRIMARY SURGEON: Daxa Gatica MD HISTORY OF PRESENT ILLNESS: A 57-year-old male with history of coronary artery disease who underwent CABG 03/09/2017 with subsequent sternal incision infection. He had wires removed and debridement 04/12/2017. He underwent debridement of tissue and bone and flap closure on 04/14/2017. Cultures then grew Staph epidermidis. Patient was being treated with vancomycin and ultimately transitioned to daptomycin q.24. Since then, he has noted increased burning, swelling, and redness around the wound VAC. It is very painful to touch. He was using [place] and ice packs for pain with relief. Denies fevers or chills. Has intermittent sweats, most notably last night. No nausea, vomiting, diarrhea. Has had a headache. Having shortness of breath, he thinks due to decreased deep breaths with pain. He presented today for elective surgery by Dr. Gatica. Underwent sternal debridement and placement of wound VAC today. Found tissue erythema without isolated pocket of purulence. REVIEW OF SYSTEMS: I completed a 10-point review of systems, negative except as noted in HPI. PAST MEDICAL HISTORY: 1. CABG with subsequent sternal incision wound infection. 2. COPD. 3. Obesity. 4. SELENE, on CPAP. 5. Paroxysmal atrial fibrillation postoperative. 6. Type 2 diabetes. 7. Alcohol dependence. 8. Peripheral vascular disease. 9. AV sclerosis with mild AI. PAST SURGICAL HISTORY: 1. Several recent surgeries secondary to wound. 2. Hemorrhoidectomy. 3. Ulnar nerve repair. SOCIAL HISTORY: Lives alone in [place]. 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 Alcohol: Drinks 8 ounces of liquor every other day. Denies withdrawal or seizures. Has smoked since age 4, was 2 packs a day, currently 5 cigarettes a day. Denies illicits. FAMILY HISTORY: Mother had TB. HOME MEDICATIONS: Metformin 1000 mg b.i.d., glyburide 5 mg b.i.d., Ambien 5 p.r.n., metoprolol 200 mg daily, [place] 7.5/325 q.6 hours p.r.n., Advair, Celexa 20 mg daily, aspirin 81 mg daily, albuterol 1-2 puffs q.4, Tylenol. ALLERGIES: Oxycodone. PHYSICAL EXAMINATION: VITAL SIGNS: Temperature 36.9, blood pressure 159/87, heart rates in the 70s, respirations 18, 92% on 4 L. GENERAL: Obese male sitting up in bed, no acute distress. Very pleasant. HEENT: PERRLA. Moist mucous membranes. CV: Regular rate, rhythm. STERNAL: Incision stapled without purulence. A wound VAC is in place. There is some mild tenderness around, but no evidence of overt cellulitis. LUNGS: Clear but diminished at bases. ABDOMEN: Soft, nontender, nondistended. Positive bowel sounds. : No Petersen. MUSCULOSKELETAL: 5/5 upper and lower extremity strength. NEURO: 2- 12 intact. PSYCH: Alert and oriented x3. LABORATORY DATA: WBC 7, hemoglobin 10, hematocrit 33, platelets 232. Labs : Sodium 138, potassium 4.7, chloride 97, anion gap 17, creatinine 0.7 glucose 295. LFTs within normal. CRP is 35, down from 54 on 04/27/2017. ASSESSMENT AND PLAN: 1. Sternal wound infection after coronary artery bypass graft: prior culture grew Staph epidermidis.He underwent debridement with VAC today. No purulence noted from op report. Followed by ID as an outpatient and on IV Daptomyci 660 mg daily through 05/27; infusions at home. 2. Chronic obstructive pulmonary disease: Resume home inhalers. No evidence of exacerbation. 3. Alcohol dependence: We will monitor for withdrawal, none now. 4. Chronic hypoxemic respiratory failure: Uses 2 L at night. 5. Obstructive sleep apnea: CPAP. 6. Coronary artery disease: Status post CABG 03/09/2017. Resume beta grant , aspirin. He is not on a statin. 7. Paroxysmal atrial fibrillation: This was postoperative. He has normal sinus rhythm now. 8. Type 2 diabetes: We will resume oral medications. 9. Diet: Cardiac. 10. Deep vein thrombosis prophylaxis: Sequential compression devices. DISPOSITION: Patient warrants observation admission for IV antibiotics and observation after surgery. He can likely discharge in the morning. /[id number]/MODL MTDD
[2017-05-05] MEDS: INSULIN LISPRO 100 UNIT/ML SC SCH (21:28)
[2017-05-05] MEDS: HYDROCODONE/APAP 10/325 TAB PO PRN (21:29)
[2017-05-05] MEDS: glyBURIDE 5 MG TAB PO SCH (21:29)
[2017-05-05] MEDS: ALBUTEROL 60 PUFFS/8 GM MDI IH SCH (23:42)
[2017-05-05] MEDS: FLUTICASONE/SALMETER 250/50MCG DISKUS IH SCH (23:43)
[2017-05-06] MEDS ORDERED: HYDROmorphone HCL/NS 0.5 MG/ML SYR IVP PRN (00:36)
[2017-05-06] MEDS ORDERED: ALBUTEROL 60 PUFFS/8 GM MDI IH PRN (00:37)
[2017-05-06] MEDS: ALBUTEROL 60 PUFFS/8 GM MDI IH SCH (00:46)
[2017-05-06] MEDS: LR 1,000 ML IV SCH (05:21)
[2017-05-06] MEDS ORDERED: NON-FORMULARY NEW DRUG (Metformin Hcl [Glucophage 1000 Mg] 1,000 MG) PO SCH (08:00)
[2017-05-06] MEDS ORDERED: metFORMIN HCL 500 MG TAB PO SCH (08:00)
[2017-05-06] MEDS: HYDROCODONE/APAP 10/325 TAB PO PRN ×2 (08:16→12:33)
[2017-05-06] MEDS: glyBURIDE 5 MG TAB PO SCH (08:17)
[2017-05-06] MEDS: INSULIN LISPRO 100 UNIT/ML SC SCH ×2 (08:19→12:18)
[2017-05-06] MEDS ORDERED: METOPROLOL SUCCINATE XR 100 MG TAB PO SCH (09:00)
[2017-05-06] MEDS ORDERED: CITALOPRAM 20 MG TAB PO SCH (09:00)
[2017-05-06] MEDS ORDERED: ASPIRIN EC 81 MG TAB PO SCH (09:00)
[2017-05-06] MEDS ORDERED: glyBURIDE 5 MG TAB PO ONE (09:21)
[2017-05-06] MEDS ORDERED: glyBURIDE 5 MG TAB PO SCH (09:22)
[2017-05-06] MEDS ORDERED: LACTULOSE 20 GM/30 ML UDCUP PO PRN (09:22)
[2017-05-06] MEDS ORDERED: BISACODYL 10 MG SUPP PR PRN (09:22)
[2017-05-06] MEDS ORDERED: MAGNESIUM HYDROXIDE 30 ML UDCUP PO PRN (09:22)
[2017-05-06] MEDS ORDERED: MAGNESIUM CITRATE 300 ML BOTTLE PO ONE (09:22)
[2017-05-06] MEDS ORDERED: POLYETHYLENE GLYCOL 3350 17 GM PKT PO PRN (09:22)
[2017-05-06] MEDS: FLUTICASONE/SALMETER 250/50MCG DISKUS IH SCH (09:26)
[2017-05-06] MEDS ORDERED: SENNOSIDES/DOCUSATE SODIUM TAB PO SCH (09:30)
[2017-05-06 12:49] VITALS: BP 129/78
--- NOTE | 2017-05-06 13:10 | PDIAF ---
- Diagnosis Diagnosis: Lidia-sternal infection, DM2 w/ hyperglycemia Code Status: Full Code - Medication Management Discharge Medications: Medications to Continue on Transfer Acetaminophen [Tylenol ES 500 mg (*)] 500 mg PO Q6 PRN 05/05/17 [Last Taken ] Albuterol [Proventil Inhaler HFA (*)] 1 - 2 puffs IH Q4H 05/05/17 [Last Taken 3 Weeks Ago ~04/14/17] Aspirin EC [Aspirin EC 81 mg (*)] 81 mg PO DAILY 05/05/17 [Last Taken 05/04/17] Citalopram [CeleXA 20 MG] 20 mg PO DAILY 05/05/17 [Last Taken 05/04/17] Fluticasone/Salmeter 250/50Mcg [Advair 250/50 (*)] 1 puffs IH BID 05/05/17 [ Last Taken 05/04/17] Metoprolol Succinate 200 mg PO DAILY 05/05/17 [Last Taken 05/04/17] Zolpidem Tartrate [Ambien 5MG (*)] 5 mg PO HS PRN 05/05/17 [Last Taken 1 Week Ago ~04/28/17] metFORMIN HCL [Glucophage 1000 mg] 1,000 mg PO BIDMEAL 05/05/17 [Last Taken ] DAPTOmycin [Cubicin] 660 mg IV DAILY@2000 ml 05/06/17 [Last Taken Unknown] Hydrocodone/Acetaminophen [[place] 7.5-325 Tablet] 1 - 2 each PO Q6H PRN #0 [Last Taken 05/05/17 09:00] glyBURIDE [Micronase 5 mg] 10 mg PO BIDMEAL tab 05/06/17 [Last Taken Unknown] [employer] Antibiotics: Daptomycin 660mg IV daily Additional Medication Instructions: Dapto to be continued at direction of Dr. Kim Discharge Medications: Refer to the Discharge Home Medication list for PRN reason. PICC Care - Routine: Yes - Orders Services needed: Home Care, Registered Nurse Home Care Face to Face: I certify that this patient was under my care and that I had the required [id number] encounter meeting the encounter requirements on the discharge day. My findings support the fact that the patient is homebound as defined in Home Care Face to Face Continued: CMS Chapter 7 Medicare Benefits Manual 30.1.1 , The condition of the patient is such that there exists a normal inability to leave home and consequently, leaving home would require a considerable and taxing effort. Isolation Type: None Oxygen: NA Diet Recommendation: ADA 2000 consistent carb Petersen: Not applicable Wound Care Instructions: Wound Vac care and changes MWF - Labs/Radiology BMP Date: 05/11/17 CBC w/diff Date: 05/11/17 CRP Date: 05/11/17 ESR Date: 05/11/17 Call or Fax Lab and Imaging Results to: Dr. Kim - Follow Up Care Current Providers and Referrals: Naif Gatica JR, MD [Medical Doctor] - (please follow-up next week as scheduled) Esther Kim MD [Medical Doctor] - (please follow-up as scheduled) Jose Yancey MD [Medical Doctor] - follow up in 1 week NONE *PRIMARY CARE P,. [Primary Care Provider] - (please schedule follow-up with your PCP office within 2-3 days)
--- NOTE | 2017-05-06 14:38 | PDDCSUM ---
Discharge Summary Discharge Summary: DISCHARGE SUMMARY FOLLOW-UP ITEMS: Outpatient wound care Outpatient infectious disease follow-up Outpatient diabetic medication titration and glucose monitoring DATE OF ADMISSION: 05/05/2017 DATE OF DISCHARGE: 05/06/2017 DISCHARGE DIAGNOSES: 1. Sternal wound infection with Staph epidermidis 2. Diabetes mellitus type 2 with hyperglycemia 3. Chronic hypoxic respiratory failure 4. Chronic coronary artery disease 5. Paroxysmal atrial fibrillation 6. Chronic COPD 7. Constipation CONSULTATIONS: Plastic surgery PROCEDURES / IMAGIN/27 wound debridement and wound VAC placement by Dr. Jin Gatica CHIEF COMPLAINT: Scheduled wound debridement SUBJECTIVE: Patient is feeling well at time discharge, he reports his pain is well managed PHYSICAL EXAM ON DISCHARGE: Systolic blood pressure 140-160, heart rate 90, afebrile overnight, satting 92% on room air, alert awake oriented x3, no apparent distress, lungs are clear to auscultation bilaterally, heart rhythm is regular, distant heart sounds, 106 systolic murmur at the sternum and apex, sternal wound without any surrounding erythema, sujata in place, wound VAC superior to sujata, bowel sounds are hypoactive, abdomen is mildly distended, lower extremities and very mild edema LABS ON DISCHARGE: Creatinine 0.5, potassium 4.8, blood glucose level ranging between 190 and 400 HOSPITAL COURSE BY PROBLEM: The patient presented for an elective sternal wound debridement, previously diagnosed as a wound infection with Staph epidermidis and being maintained on daptomycin. Surgeries performed on 05/[address] Gatica, and the patient experienced no complication. Wound VAC was placed in will require ongoing outpatient management. Hospital Medicine admitted the patient due to his numerous medical comorbidities, and the patient's notable hyperglycemia was managed on insulin sliding scale. The patient was offered insulin therapy moving forward, particularly given that he will experience hyperglycemia in the short term secondary to his most recent surgery and infection, and the patient decline. He is currently not comfortable administering insulin therapy. He does report that prior to his surgery, he had been holding his metformin for several days and had also reduced his dosage of glyburide based on his outpatient providers recommendations. I recommended to the patient that he up titrate his glyburide back to 10 mg twice daily, and that he continue on his dosage of metformin 1000 mg twice daily. Both of these medications have been administered at these doses today, and I anticipate that his blood glucose levels will begin responding to them in the next 24 hr. Although would be ideal for the patient go home on basal and bolus insulin, the patient is not comfortable doing so, and this treatment strategy with glyburide and metformin will need to suffice. I recommended to the patient that he follow up closely with his primary care provider for ongoing glucose management and diabetic education. The patient's other comorbid conditions remained stable, and he was continued on his home medications. The patient reports that he has good pain control with the current opiate medication and he reports that he has a full prescription for this at home and does not require additional prescription at this time. I did recommend that the patient utilize laxative prior to discharge in that he continue on ongoing stool softeners as well as as needed laxatives at home. Dr. Gatica recommended that the patient be discharge, coordinating care with him and case management on the day of discharge. DISCHARGE MEDICATIONS: Please see official discharge medication reconciliation sheet in chart , continue all home medications with up titration of glyburide to 10 mg twice daily. DISCHARGE INSTRUCTIONS: Continue outpatient wound VAC management, follow up with Infectious Disease as originally scheduled, have labs performed next Thursday with results to Dr. Esther Kim.
--- NOTE | 2017-05-06 15:07 | ASMTLACE ---
LACE Length of stay for Answers: 1 day current admission Acuity / Level of Answers: No Care: Did the patient have an inpatient admission? Comorbidities - select Answers: Chronic pulmonary disease all that apply Coronary Artery Disease Diabetes (uncontrolled or controlled) Social determinants Answers: History of substance abuse (ETOH, street drugs, prescription drugs, etc.) Score: 9 Date Signed: 05/06/2017 03:06 PM Electronically Signed By:Lore Lang RN
--- NOTE | 2017-05-06 16:40 | ASDISCHSUM ---
Discharge Information Plan Status:Home with Home Health Medically Cleared to Leave: Discharge Date:05/06/2017 04:20 PM CM D/C Disposition:Home Health Service ADT D/C Disposition:[id number] Projected Discharge Date:05/06/2017 11:00 AM Transportation at D/C: Discharge Delay Reason: Follow-Up Date:05/06/2017 11:00 AM Discharge Slot: Final Diagnosis: Placement Information Referral Type:Home Infusion Referral ID:[id number] Provider Name:[facility] [place] ([facility] Address 1:[address] Address 2: City:[place] Selection Factors: State:[place] Referral Type:*Home Health Care Services Referral ID:[id number] Provider Name:[facility] Address 1:[address] , [address] Address 2: City:[place] Selection Factors: State:[place] Patient Contact Information Contact Name:NITIN Relationship:Friend Address:[address] [employer] [facility] Work Phone: City:[place] Alternate Phone: [facility]/Zip Code:[place] [address] Email: Financial Information Financial Class:Medicaid Primary Plan Desc:MEDICAID HEALTH [employer] Primary Plan Number:[id number] Secondary Plan Desc: Secondary Plan Number: Assessment Information LACE LACE Length of stay for Answers: 1 day current admission Acuity / Level of Answers: No Care: Did the patient have an inpatient admission? Comorbidities - select Answers: Chronic pulmonary disease all that apply Coronary Artery Disease Diabetes (uncontrolled or controlled) Social determinants Answers: History of substance abuse (ETOH, street drugs, prescription drugs, etc.) Score: 9 Date Signed: 05/06/2017 03:06 PM Electronically Signed By:Lore Lang RN Intervention Information
== END 2017-05-06 16:20 | disposition home health service (06) ==
LOC: FSGY 13:53 → F1N 15:06
PROVIDERS: ADMIT Specialist; ATTEND Internal Medicine
PROC: 2W14X6Z Compression of Chest Wall using Pressure Dressing (ICD-10-PCS; principal; 2017-05-05 15:45)
DX: T81.4XXA Infection following a procedure, initial encounter (principal); I25.10 Atherosclerotic heart disease of native coronary artery without angina pectoris; Z95.1 Presence of aortocoronary bypass graft; B95.7 Other staphylococcus as the cause of diseases classified elsewhere; E11.65 Type 2 diabetes mellitus with hyperglycemia; J44.9 Chronic obstructive pulmonary disease, unspecified; G47.33 Obstructive sleep apnea (adult) (pediatric); F17.210 Nicotine dependence, cigarettes, uncomplicated; F10.20 Alcohol dependence, uncomplicated; J96.11 Chronic respiratory failure with hypoxia
CPT/HCPCS: J0171; J0878; J1100; J1170; J1815; J2250; J2405; J2704; J3010